=== PATIENT | male | born 1960 | race Caucasian/White ===

== ENCOUNTER → 2017-11-13 06:01 | Outpatient (CLI) | payer BC, SELFPAY ==
[2017-11-13 06:38] LABS: Hemoglobin A1C 5.3 % (0.0-7.0)
[2017-11-13 07:06] LABS: Alanine Aminotransferase 37 U/L (12-78); Albumin Level 3.9 gm/dL (3.4-5.0); Albumin/Globulin Ratio 1.2 (1.1-1.8); Alkaline Phosphatase 84 U/L (46-116); Anion Gap 10.7 mEq/L (5-15); Aspartate Amino Transferase 17 U/L (15-37); Bilirubin,Total 0.7 mg/dL (0.2-1.0); Blood Urea Nitrogen 7 mg/dL (7-18); Calcium 8.9 mg/dL (8.5-10.1); Carbon Dioxide 27 mmol/L (21.0-32.0); Chloride 106 mmol/L (98-107); Chol/HDL Ratio 4.6 (1-3.5); Cholesterol 196 mg/dL (140-200); Creatinine,Serum 0.93 mg/dL (0.70-1.30); Estimated Glomerular Filt Rate 84 ml/min (>60); GFR (African American) 101 ML/MIN (>60); Globulin 3.2 gm/dl (1.3-3.2); Glucose 101 mg/dL (74-106); HDL Cholesterol 43 mg/dL (27-67); LDL Cholesterol 137 mg/dL (0-130); Potassium 3.7 mmoL/L (3.5-5.1); Prostate Specific Ag Screen 2.3 ng/mL (0.0-4.0); Sodium 140 mmol/L (136-145); Thyroid Stimulating Hormone 1.89 uIU/ml (0.358-3.740); Total Protein,Serum 7.1 gm/dL (6.4-8.2); Triglycerides 82 mg/dL (30-200); VLDL Cholesterol 16 mg/dL (0-40)
[2017-11-15 05:18] LABS: Creatinine, Urine 277.7 mg/dL (Not Estab.); Microalbumin, Urine 122.2 ug/mL (Not Estab.)
== END ==
PROVIDERS: Nurse Practitioner; PCP Family Medicine; Visit Provider Family Medicine
DX: Z12.5 Encounter for screening for malignant neoplasm of prostate (principal); Z13.1 Encounter for screening for diabetes mellitus; I10 Essential (primary) hypertension; E78.2 Mixed hyperlipidemia
CPT/HCPCS: 36415; 80053; 80061; 82043; 82570; 83036; 84443; 85025; G0103

== ENCOUNTER → 2018-01-23 10:55 | Outpatient (CLI) | payer BC, SELFPAY ==
--- NOTE | 2018-01-23 11:07 | XR_ITS ---
XR lumbar spine min 4V Ordering Physician: Marta Davenport Patient Age: 57 years: Male HISTORY: ITS.REASON: LUMBAGO W/SCIATICA Low back pain. Extending down both legs. TECHNIQUE: Five-view lumbar spine series. COMPARISON :May 2014 lumbar spine series FINDINGS The vertebral bodies appear intact. L5/S1. Trace degenerative disc space narrowing. Bilateral facet arthropathy, hypertrophy right greater than left. L4/5. Mild 6 mm Grade 1 degenerative spondylosis L4 and L5.. Mild degenerative disc space narrowing. Posterior facet hypertrophy/arthropathy bilaterally, slightly more evident to the right... No pars defect identified. associated L2/3 with mild disc space narrowing posteriorly noted as well. Pedicles transverse processes SI joints intact. May 17, 2014 lumbar spine series. Subtle dextrocurvature at the thoracolumbar junction IMPRESSION: ------ . Facet arthropathy and Degenerative changes most evident L4/5 L5/S1. Only very slight if any progression since 2014 lumbar spine series L4/5.: mild degenerative grade 1 anterolisthesis L4 on L5. Facet arthropathy & hypertrophy.. Degenerative disc space narrowing most notable anterior. L5/S1: bilateral facet arthropathy most pronounced on the right right. Scant degenerative disc space narrowing. .
== END ==
PROVIDERS: PCP Nurse Practitioner; Visit Provider Nurse Practitioner
DX: M54.42 Lumbago with sciatica, left side (principal); M54.41 Lumbago with sciatica, right side
CPT/HCPCS: 72110

== ENCOUNTER → 2018-03-20 13:29 | Outpatient (CLI) | payer BC, SELFPAY ==
--- NOTE | 2018-03-20 13:47 | XR_ITS ---
XR chest 2 HISTORY: Cough and congestion ITS.REASON: BRONCHITIS ORDERING PHYSICIAN: Marta Davenport PATIENT AGE: 57 years COMPARISON: 08/01/2014 FINDINGS: The cardiomediastinal silhouette and pulmonary vascularity are within normal limits. The lungs are clear without infiltrates, suspicious nodules, or pleural acute bony abnormalities. IMPRESSION: Negative chest, no acute finding
== END ==
PROVIDERS: PCP Nurse Practitioner; Visit Provider Nurse Practitioner
DX: J40 Bronchitis, not specified as acute or chronic (principal)
CPT/HCPCS: 71046

== ENCOUNTER → 2018-04-21 19:57 | Outpatient (CLI) | payer BC, SELFPAY | PROVIDERS: PCP Family Medicine; Visit Provider Nurse Practitioner | DX: R05 Cough (principal) | CPT/HCPCS: 87070; 87116; 87205; 87206 ==

== ENCOUNTER → 2018-04-22 12:18 | Outpatient (CLI) | payer BC, SELFPAY | PROVIDERS: Visit Provider Nurse Practitioner | DX: R05 Cough (principal) | CPT/HCPCS: 87070; 87077; 87116; 87205; 87206 ==

== ENCOUNTER → 2018-06-26 11:28 | Outpatient (CLI) | payer BC, SELFPAY ==
[2018-06-26 12:26] LABS: Blood Urea Nitrogen 9 mg/dL (7-18); Creatinine,Serum 0.86 mg/dL (0.70-1.30); Estimated Glomerular Filt Rate 91 ml/min (>60); GFR (African American) 111 ML/MIN (>60)
--- NOTE | 2018-06-26 13:52 | CT_ITS ---
CT pelvis w con HISTORY: Right groin pain. Inguinal area pain right side. ITS.REASON: RIGHT GROIN PAIN ORDERING PHYSICIAN: Marta Davenport APRN PATIENT AGE: 57 years male COMPARISON: None Technique: Helical CT scanning performed through the pelvis with axial, coronal and sagittal reconstruction performed. Additional 3-D volume rendering reconstruction. All CT scans at the facility use one or more dose reduction, viz: automated exposure control, ma/kV adjustment per patient size (including targeted exams where dose is matched to indication, i.e. head), or iterative reconstruction technique. FINDINGS: . On close inspection at the right groin there is very tiny area of fat bulging through a slightly more generous right inguinal ring, reflecting a very small fat-containing right inguinal hernia.., (Axial image 60, 61, sagittal image 45.) No bowel loops here. No inflammation No Evidence of appendicitis. Appendix is small and difficult to visualize but no evidence of inflammation or appendicitis. There is generous stool at the cecum and moderate stool at the right colon. Only the pelvis is imaged. Terminal ileum appears satisfactory Oral contrast was given and outlines the distal small bowel and terminal ileum and is just now entering the cecum, right colon. Prostate mildly enlarged measuring 5.3 cm transverse diameter. The right seminal vesicles more generous than the left but otherwise unremarkable. Urinary bladder unremarkable. No pelvic adenopathy or mass There is diverticulosis of the colon most extensive at the sigmoid colon and continuing into the left colon. No diverticulitis. No inflammatory changes. --------- Lower lumbar observations L4/5 disc space narrowing with mild grade 1 listhesis of L4 on L5. Due to the prominent facet arthropathy/hypertrophy along with degenerative disc narrowing and changes. L5/S1 facet hypertrophy right greater than left. Mild disc bulge L3/4. Generous disc bulge to the right vaguely evident L2/3. Degenerative disc space narrowing mild posterior ridging with diffuse bulge. Spondylosis . Very Tiny fat-containing umbilical hernia noted Bony pelvis: Unremarkable. No acute fracture or dislocation. Hips: Unremarkable. No acute fracture or dislocation. Sacrum/coccyx: SI joints Unremarkable as visualized. No acute fracture. IMPRESSION: 1. Only very subtle bulging of fat through a slightly more generous right inguinal ring.-Suggest a very tiny developing right inguinal hernia. Unimpressive. Barely evident . No inflammation or bowel loops. No other inflammatory changes or findings at the right groin groin . No inguinal adenopathy. 2. No evidence of appendicitis. I believe the appendix is small and difficult to visualize but no inflammation here. Terminal ileum unremarkable 3. Moderate to generous stool cecum.-With Cecum residing just at the level of anterior iliac spine . No inflammation or findings here. 4. Colonic diverticulosis most extensive at the sigmoid colon and towards left colon. No diverticulitis. 5. Prostate mildly enlarged 6. Notable Multilevel degenerative changes lumbar spine as detailed in text Bulging disc, generous facet/posterior element hypertrophy multiple levels .
== END ==
PROVIDERS: PCP Nurse Practitioner; Visit Provider Nurse Practitioner
DX: R10.31 Right lower quadrant pain (principal); E78.2 Mixed hyperlipidemia; K21.9 Gastro-esophageal reflux disease without esophagitis; I10 Essential (primary) hypertension; Z12.5 Encounter for screening for malignant neoplasm of prostate; Z13.1 Encounter for screening for diabetes mellitus
CPT/HCPCS: 36415; 72193; 82565; 84520; Q9967

== ENCOUNTER → 2018-07-04 15:53 | Outpatient (CLI) | payer BC, SELFPAY ==
[2018-07-04 18:09] LABS: Blood Urea Nitrogen 9 mg/dL (7-18); Creatinine,Serum 0.89 mg/dL (0.70-1.30); Estimated Glomerular Filt Rate 88 ml/min (>60); GFR (African American) 106 ML/MIN (>60)
== END ==
PROVIDERS: Visit Provider Surgery
DX: K40.90 Unilateral inguinal hernia, without obstruction or gangrene, not specified as recurrent (principal)
CPT/HCPCS: 36415; 82565; 84520

== ENCOUNTER → 2018-07-10 12:45 | Outpatient (CLI) | payer BC, SELFPAY ==
--- NOTE | 2018-07-10 12:50 | MR_ITS ---
MR pelvis wo/w con CLINICAL INDICATION: Right-sided pelvic and groin pain, no known injury ITS.REASON: rt inguinal hernia ORDERING PHYSICIAN: Salazar Adams MD PATIENT AGE: 57 years Comparison: 07/03/2018 TECHNIQUE: Multiplanar multiecho sequences are performed without and with gadolinium enhancement FINDINGS: There is a mild degree of motion artifact which does somewhat obscure fine detail. A small right inguinal hernia was suspected on the CT scan of 06/26/2018 and is redemonstrated on today's exam. This is very small and does not contain any bowel. There is diverticulosis of the sigmoid colon. The prostate is prominent at 5.5 cm. There is slight increased T2 signal along the left side of the symphysis pubis along the anterior and inferior aspect. This may be seen with athletic pubalgia. There is a small right hip joint effusion. There is some decreased T1 and increased T2 signal in the acetabular roof on the right. Mild osteoarthritic changes are present involving the hips slightly greater on the right.. There is increased T2 signal along the deep aspect of the iliopsoas muscle. This does show some contrast enhancement as well. The right femoral head has an unremarkable appearance. There is focal bright increased T2 signal within these iliopsoas muscle at the level of the femoral head with 2 focal areas of increased T2 signal at this region. This is isointense on T1 with some minimal contrast enhancement. This may be due to an area of subacute hemorrhage. Hemorrhagic mass is felt to BE less likely however that etiology cannot be excluded and follow-up is recommended. IMPRESSION: 1. Mild osteoarthritis of the right hip with right hip effusion and some bone marrow edema in the acetabular roof on the right which could be related to the underlying osteoarthritic change. 2. Focal bright T2 hyperintensity within the psoas muscle to adjacent spinous with some peripheral increased T2 signal of the iliopsoas muscle in the iliac fossa with mild enhancement. A subacute hemorrhage is considered. Recommend follow-up to confirm resolution to exclude the possibility of a hemorrhagic mass..
== END ==
PROVIDERS: PCP Family Medicine; Visit Provider Surgery
DX: K40.90 Unilateral inguinal hernia, without obstruction or gangrene, not specified as recurrent
CPT/HCPCS: 72197; A9576

== ENCOUNTER → 2021-01-08 12:11 | Outpatient (CLI) | payer BC, SELFPAY ==
[2021-01-08 14:44] LABS: Basophils % 0.4 % (0.1-2.0); Eosinophils % 0.1 % (0.1-12.0); Hematocrit 50.1 % (42.0-52.0); Hemoglobin 16.8 g/dL (14.1-18.0); Lymphocytes # 2.1 K/mm3 (0.7-4.5); Lymphocytes % 27.2 % (10-50); Mean Corpuscular HGB Conc 33.5 g/dL (31.8-35.4); Mean Corpuscular Hemoglobin 29.7 pg (27.0-31.2); Mean Corpuscular Volume 88.6 fl (80-94); Mean Platelet Volume 7.9 fl (7.4-10.4); Monocytes # 0.6 K/mm3 (0.1-1.0); Monocytes % 8.2 % (1.7-9.3); Neutrophils # 4.9 K/mm3 (1.8-7.8); Platelet Count 235 K/mm3 (142-424); Red Blood Count 5.65 M/mm3 (4.60-6.20); Red Cell Distribution Width 13.9 % (11.5-17.5); White Blood Count 7.6 K/mm3 (4.8-10.8)
== END ==
PROVIDERS: PCP Nurse Practitioner; Visit Provider Nurse Practitioner
DX: Z20.822 Contact with and (suspected) exposure to COVID-19 (principal)
CPT/HCPCS: 36415; 85025; 87275; 87276; C9803; U0003; U0005

== ENCOUNTER → 2021-11-30 06:14 | Outpatient (CLI) | payer BC, SELFPAY ==
[2021-11-30 18:10] LABS: Adenovirus,PCR Not Detected (NotDetected); Bordetella Pertussis Not Detected (NotDetected); Chlamydophila Pneumoniae, PCR Not Detected (NotDetected); Coronavirus 19, PCR Not Detected (NotDetected); Coronavirus 229E Not Detected (NotDetected); Coronavirus NL63 Not Detected (NotDetected); Coronavirus OC43 Not Detected (NotDetected); Coronovirus HKU1,PCR Not Detected (NotDetected); Human Metapneumovirus Not Detected (NotDetected); Influenza A, PCR Not Detected (NotDetected); Influenza AH1, 2009 Not Detected (NotDetected); Influenza AH1, PCR Not Detected (NotDetected); Influenza AH3,PCR Not Detected (NotDetected); Influenza B, PCR Not Detected (NotDetected); Mycoplasma Pneumoniae, PCR Not Detected (NotDetected); Parainfluenza 1, PCR Not Detected (NotDetected); Parainfluenza 2, PCR Not Detected (NotDetected); Parainfluenza 3, PCR Not Detected (NotDetected); Parainfluenza 4, PCR Not Detected (NotDetected); Respiratory Syncytial Virus Not Detected (NotDetected); Rhinovirus/Enterovirus Not Detected (NotDetected)
[2021-11-30 18:31] LABS: Basophils # 0.1 K/mm3 (0-0.2); Basophils % 0.6 % (0.1-2.0); Hematocrit 51.7 % (42.0-52.0); Hemoglobin 16.7 g/dL (14.1-18.0); Lymphocytes # 2.3 K/mm3 (0.7-4.5); Lymphocytes % 21.3 % (10-50); Mean Corpuscular HGB Conc 32.2 g/dL (31.8-35.4); Mean Corpuscular Hemoglobin 29.5 pg (27.0-31.2); Mean Corpuscular Volume 91.5 fl (80-94); Mean Platelet Volume 9.7 fl (7.4-10.4); Monocytes # 0.9 K/mm3 (0.1-1.0); Monocytes % 8.1 % (1.7-9.3); Neutrophils # 7.4 K/mm3 (1.8-7.8); Neutrophils % 69.9 % (37.0-80.0); Platelet Count 271 K/mm3 (142-424); Red Blood Count 5.65 M/mm3 (4.60-6.20); Red Cell Distribution Width 13.6 % (11.5-17.5); White Blood Count 10.6 K/mm3 (4.8-10.8)
== END ==
PROVIDERS: PCP Nurse Practitioner; Visit Provider Nurse Practitioner
DX: Z20.822 Contact with and (suspected) exposure to COVID-19 (principal); J40 Bronchitis, not specified as acute or chronic; R05.9 Cough, unspecified; R06.2 Wheezing
CPT/HCPCS: 85025; 87581; 87632; 87798; C9803; U0003; U0005

== ENCOUNTER → 2022-03-01 09:46 | Outpatient (CLI) | payer BC, SELFPAY ==
[2022-03-01 15:51] LABS: Basophils % 0.7 % (0.1-2.0); Eosinophils % 0.1 % (0.1-12.0); Hematocrit 49.3 % (42.0-52.0); Hemoglobin 16.7 g/dL (14.1-18.0); Lymphocytes # 1.8 K/mm3 (0.7-4.5); Lymphocytes % 27.4 % (10-50); Mean Corpuscular HGB Conc 33.9 g/dL (31.8-35.4); Mean Corpuscular Hemoglobin 30.4 pg (27.0-31.2); Mean Corpuscular Volume 89.7 fl (80-94); Mean Platelet Volume 9.7 fl (7.4-10.4); Monocytes # 0.4 K/mm3 (0.1-1.0); Monocytes % 5.8 % (1.7-9.3); Neutrophils # 4.4 K/mm3 (1.8-7.8); Platelet Count 284 K/mm3 (142-424); Red Blood Count 5.49 M/mm3 (4.60-6.20); Red Cell Distribution Width 13.7 % (11.5-17.5); White Blood Count 6.7 K/mm3 (4.8-10.8)
[2022-03-02 07:47] LABS: Adenovirus,PCR Not Detected (NotDetected); Bordetella Pertussis Not Detected (NotDetected); Chlamydophila Pneumoniae, PCR Not Detected (NotDetected); Coronavirus 19, PCR Not Detected (NotDetected); Coronavirus 229E Not Detected (NotDetected); Coronavirus NL63 Not Detected (NotDetected); Coronavirus OC43 Not Detected (NotDetected); Coronovirus HKU1,PCR Not Detected (NotDetected); Human Metapneumovirus Not Detected (NotDetected); Influenza A, PCR Not Detected (NotDetected); Influenza AH1, 2009 Not Detected (NotDetected); Influenza AH1, PCR Not Detected (NotDetected); Influenza AH3,PCR Not Detected (NotDetected); Influenza B, PCR Not Detected (NotDetected); Mycoplasma Pneumoniae, PCR Not Detected (NotDetected); Parainfluenza 1, PCR Not Detected (NotDetected); Parainfluenza 2, PCR Not Detected (NotDetected); Parainfluenza 3, PCR Not Detected (NotDetected); Parainfluenza 4, PCR Not Detected (NotDetected); Respiratory Syncytial Virus Not Detected (NotDetected)
[2022-03-02 10:33] LABS: Rhinovirus/Enterovirus Detected (NotDetected)
== END ==
PROVIDERS: PCP Nurse Practitioner; Visit Provider Nurse Practitioner
DX: J06.9 Acute upper respiratory infection, unspecified (principal); B34.1 Enterovirus infection, unspecified
CPT/HCPCS: 85025; 87581; 87632; 87798; C9803; U0003; U0005

== ENCOUNTER → 2022-05-05 11:00 | Outpatient (CLI) | payer BC, SELFPAY | PROVIDERS: PCP Nurse Practitioner; Visit Provider Nurse Practitioner | DX: H66.91 Otitis media, unspecified, right ear (principal); J02.9 Acute pharyngitis, unspecified; J06.9 Acute upper respiratory infection, unspecified; R05.9 Cough, unspecified ==

== ENCOUNTER → 2022-09-21 10:58 | Outpatient (CLI) | payer BC, OTHER, SELFPAY ==
[2022-09-21 18:18] LABS: Basophils % 0.4 % (0.1-2.0); Eosinophils % 0.3 % (0.1-12.0); Hematocrit 52.5 % (42.0-52.0); Hemoglobin 17.1 g/dL (14.1-18.0); Lymphocytes % 37.2 % (10-50); Mean Corpuscular HGB Conc 32.6 g/dL (31.8-35.4); Mean Corpuscular Hemoglobin 28.5 pg (27.0-31.2); Mean Corpuscular Volume 87.3 fl (80-94); Mean Platelet Volume 9.6 fl (7.4-10.4); Monocytes # 0.5 K/mm3 (0.1-1.0); Monocytes % 9.5 % (1.7-9.3); Neutrophils # 2.8 K/mm3 (1.8-7.8); Neutrophils % 52.7 % (37.0-80.0); Platelet Count 239 K/mm3 (142-424); Red Blood Count 6.02 M/mm3 (4.60-6.20); Red Cell Distribution Width 13.8 % (11.5-17.5); White Blood Count 5.3 K/mm3 (4.8-10.8)
[2022-09-21 18:32] LABS: Alanine Aminotransferase 37 U/L (12-78); Albumin Level 4.4 g/dl (3.5-5.0); Albumin/Globulin Ratio 1.5 (1.1-1.8); Alkaline Phosphatase 83 U/L (38-126); Anion Gap 11.9 mEq/L (5-15); Aspartate Amino Transferase 35 U/L (17-59); Bilirubin,Total 1.2 mg/dl (0.2-1.3); Blood Urea Nitrogen 10 mg/dl (9-20); Calcium 9.2 mg/dl (8.4-10.2); Carbon Dioxide 27 mmol/L (22.0-30.0); Chloride 104 mmol/L (98-107); Chol/HDL Ratio 4.5 (1-3.5); Cholesterol 197 mg/dl (140-200); Estimated Glomerular Filt Rate 86 ml/min (>60); GFR (African American) 103 ML/MIN (>60); Glucose 105 mg/dl (74-100); HDL Cholesterol 44 mg/dl (40-60); Potassium 3.9 mmoL/L (3.5-5.1); Sodium 139 mmol/L (136-145); Total Protein,Serum 7.4 g/dl (6.3-8.2); Triglycerides 129 mg/dl (30-150); VLDL Cholesterol 26 mg/dL (0-40)
[2022-09-21 18:43] LABS: Direct LDL Cholesterol 121.96 mg/dL (100-129)
[2022-09-21 19:06] LABS: Thyroid Stimulating Hormone 0.97 uIU/mL (0.465-4.68)
[2022-09-21 19:25] LABS: Vitamin B12 274 pg/mL (239-931)
[2022-09-21 19:41] LABS: Creatinine,Urine Random 183 mg/dL (Not Estab.)
[2022-09-21 19:42] LABS: Microalbumin/Creatinine Ratio 21.4
== END ==
PROVIDERS: PCP Nurse Practitioner; Visit Provider Nurse Practitioner
DX: I10 Essential (primary) hypertension (principal); E78.5 Hyperlipidemia, unspecified; J45.909 Unspecified asthma, uncomplicated; K21.9 Gastro-esophageal reflux disease without esophagitis; Z13.1 Encounter for screening for diabetes mellitus; Z12.5 Encounter for screening for malignant neoplasm of prostate
CPT/HCPCS: 80053; 80061; 82043; 82570; 82607; 83036; 84443; 85025; G0103

== ENCOUNTER 2022-12-31 14:42 | Emergency (ER) | payer BC, OTHER, SELFPAY ==
[2022-12-31 15:00] VITALS: BP 141/95; PULSE 96; RESP 20; TEMP 37.1; O2SAT 98; BMI 36.3
[2022-12-31 15:38] VITALS: BP 141/95; PULSE 96; RESP 20; TEMP 37.1; O2SAT 98
--- NOTE | 2022-12-31 15:43 | EXP.UTC ---
Discharge Plan Disposition Patient Disposition: Still a Patient Condition: Good Prescriptions Prescriptions: New amoxicillin-pot clavulanate 875-125 mg Tablet 1 tab PO Q12H 10 Days Qty: 20 0RF methylprednisolone [Medrol (Fabiano)] 4 mg tablets,dose pack See Rx Instructions .Route .COMPLEX 6 Days Qty: 21 0RF Rx Instructions: taper pack; No Action Symbicort 80-4.5 mcg/actuation HFA aerosol inhaler 2 puff INHALATION BID ProAir HFA 90 mcg/actuation HFA aerosol inhaler 2 puff INHALATION QID Fasenra 30 mg/mL syringe 30 mg SQ Q8W levocetirizine 5 mg tablet 5 mg PO DAILY Qty: 90 3RF fluticasone propionate 50 mcg/actuation spray,suspension See Rx Instructions .ROUTE .COMPLEX Qty: 16 3RF Dose Instruction: Use 1 [place] in each nostril once daily. Rx Instructions: Use 1 [place] in each nostril once daily. lansoprazole 30 mg capsule,delayed release(DR/EC) See Rx Instructions .ROUTE .COMPLEX Qty: 90 1RF Dose Instruction: Take 1 Capsule by mouth once daily. Rx Instructions: Take 1 Capsule by mouth once daily. montelukast 10 mg tablet See Rx Instructions .ROUTE .COMPLEX Qty: 90 1RF Dose Instruction: Take 1 Tablet by mouth once every evening. Rx Instructions: Take 1 Tablet by mouth once every evening. losartan 50 mg tablet See Rx Instructions .ROUTE .COMPLEX Qty: 90 1RF Dose Instruction: Take 1 Tablet by mouth once daily. Rx Instructions: Take 1 Tablet by mouth once daily. simvastatin 20 mg tablet See Rx Instructions .ROUTE .COMPLEX Qty: 90 1RF Dose Instruction: Take 1 Tablet by mouth once daily at bedtime. Rx Instructions: Take 1 Tablet by mouth once daily at bedtime. Referrals Follow up/Referrals: Marta Davenport APRN [Primary Care Provider] - See instructions Activity Restrictions/Add. Instructions Additional Instructions/Restrictions: *Monitor Temp, Over the counter Motrin or Tylenol as directed/as needed Tylenol every 4 hours and Motrin every 6 hours (as long as your family doctor has told you that you can take it) for fever or pain. and straight to ER if unable to lower temp less than 101.0 after medication given *Warm salt water gargles may help to soothe the throat *Throat Lozenges? *Warm fluids like tea with honey may help to soothe the throat? *Sleep elevated *Humidifier/Vaporizer Follow up IMMEDIATELY for new or worsening symptoms or no Noticeable improvement over the next 48-72 hours. 911 for difficulty breathing or swallowing Clinical Impressions Clinical Impression: Sinusitis Qualifiers: Sinusitis location: unspecified location Chronicity: unspecified Qualified Code(s): J32.9 - Chronic sinusitis, unspecified Instructions Patient Instructions: DI for Sinusitis, Sinusitis, Middle Ear Infection Discharge ED Provider: Tiffanie Yeager [facility] General Stated complaint: COLD Mode of Arrival: Ambulatory Source of Information: Patient Limitations: No Limitations Time Seen by Provider: 12/31/22 15:46 Description of Symptoms (Recalled from Triage Doc. by RN): PATIENT C/O COUGH, RUNNY NOSE, SORE THOAT, SNEEZING, SINUS DRAINAGE, CONGESTION, AND BILATERAL EAR PAIN X 1 WEEK HEENT Symptoms (Recalled from RN notes): Yes Resp Symptoms (Recalled from RN notes): Yes Skin Symptoms (Recalled from RN notes): No MS Symptoms (Recalled from RN notes): No Functional Status (Recalled from RN notes): WNL History of Present Illness Provider Complaint: Patient states that she has been having cough, runny nose, sore throat, bilateral ear pain and pressure along with sinus pain and pressure behind his eyes States that he has been sick over a week and thought today when his sinus pressure was worse he came in to get checked Related Data Home Medications Medication Instructions Recorded Confirmed albuterol sulfate 90 mcg/actuation 2 puff inhalation QID 07/03/1809/21
== END 2022-12-31 15:58 | disposition still patient (30) ==
PROVIDERS: Emergency Provider Nurse Practitioner; PCP Nurse Practitioner
DX: J01.90 Acute sinusitis, unspecified (principal); H92.03 Otalgia, bilateral; J45.909 Unspecified asthma, uncomplicated; K21.9 Gastro-esophageal reflux disease without esophagitis; E78.5 Hyperlipidemia, unspecified; I10 Essential (primary) hypertension
CPT/HCPCS: 99204; 99212; G0463

== ENCOUNTER 2023-04-20 21:26 | Outpatient (CLI) | payer BC, OTHER, SELFPAY ==
[2023-04-20 19:24] LABS: Basophils % 0.3 % (0.1-2.0); Eosinophils % 0.1 % (0.1-12.0); Hematocrit 49.8 % (42.0-52.0); Hemoglobin 17.2 g/dL (14.1-18.0); Lymphocytes # 1.7 K/mm3 (0.7-4.5); Lymphocytes % 24.9 % (10-50); Mean Corpuscular HGB Conc 34.5 g/dL (31.8-35.4); Mean Corpuscular Hemoglobin 30.7 pg (27.0-31.2); Mean Corpuscular Volume 88.9 fl (80-94); Mean Platelet Volume 9.6 fl (7.4-10.4); Monocytes # 0.6 K/mm3 (0.1-1.0); Neutrophils # 4.4 K/mm3 (1.8-7.8); Neutrophils % 65.6 % (37.0-80.0); Platelet Count 224 K/mm3 (142-424); White Blood Count 6.8 K/mm3 (4.8-10.8)
[2023-04-20 19:55] LABS: Erythrocyte Sedimentation Rate 3 mm/hr (0-20)
[2023-04-20 20:05] LABS: Creatinine,Urine Random 131 mg/dL (Not Estab.)
[2023-04-20 20:07] LABS: Microalbumin/Creatinine Ratio 18.7
[2023-04-20 20:12] LABS: Alanine Aminotransferase 29 U/L (12-78); Albumin Level 3.9 g/dl (3.5-5.0); Albumin/Globulin Ratio 1.5 (1.1-1.8); Alkaline Phosphatase 76 U/L (38-126); Aspartate Amino Transferase 33 U/L (17-59); Blood Urea Nitrogen 7 mg/dl (9-20); Carbon Dioxide 26 mmol/L (22.0-30.0); Chloride 109 mmol/L (98-107); Chol/HDL Ratio 5.8 (1-3.5); Cholesterol 184 mg/dl (140-200); Estimated Glomerular Filt Rate 114 ml/min (>60); GFR (African American) 138 ML/MIN (>60); Globulin 2.6 g/dL (1.3-3.2); Glucose 100 mg/dl (74-100); HDL Cholesterol 32 mg/dl (40-60); Sodium 139 mmol/L (136-145); Total Protein,Serum 6.5 g/dl (6.3-8.2); Triglycerides 132 mg/dl (30-150); Uric Acid 6.4 mg/dl (3.5-8.5); VLDL Cholesterol 26 mg/dL (0-40)
[2023-04-20 20:22] LABS: C-Reactive Protein 0.9 mg/L (0-4); Direct LDL Cholesterol 119.72 mg/dL (100-129)
[2023-04-20 20:30] LABS: 25-OH Vitamin D, Total 20.7 ng/mL (30-100)
[2023-04-20 20:43] LABS: Thyroid Stimulating Hormone 0.91 uIU/mL (0.465-4.68)
[2023-04-20 21:01] LABS: Vitamin B12 234 pg/mL (239-931)
[2023-04-22 05:08] LABS: RA Latex Turbid. <10.0 IU/mL (<14.0)
[2023-04-22 12:48] LABS: Anti-Centromere B Antibodies <0.2 AI (0.0-0.9); Anti-DNA (DS) Ab Qn 3 IU/mL (0-9); Anti-Jo-1 <0.2 AI (0.0-0.9); Anti-Smith Antibody <0.2 AI (0.0-0.9); Antichromatin Antibodies 0.4 AI (0.0-0.9); Antiscleroderma-70 Antibodies <0.2 AI (0.0-0.9); RNP Antibodies 0.3 AI (0.0-0.9); Sjogren's Anti-SS-A 0.3 AI (0.0-0.9); Sjogren's Anti-SS-B <0.2 AI (0.0-0.9)
[2023-05-01 09:31] LABS: Antinuclear Antibodies, IFA Positive
== END 2023-04-20 23:59 ==
LOC: LAB.DROPOF 21:26
PROVIDERS: PCP Nurse Practitioner; Visit Provider Nurse Practitioner
DX: M25.541 Pain in joints of right hand (principal); M25.542 Pain in joints of left hand; J45.909 Unspecified asthma, uncomplicated; I10 Essential (primary) hypertension; E78.5 Hyperlipidemia, unspecified; K21.9 Gastro-esophageal reflux disease without esophagitis; E55.9 Vitamin D deficiency, unspecified; Z79.899 Other long term (current) drug therapy
CPT/HCPCS: 80053; 80061; 82043; 82306; 82570; 82607; 84443; 84550; 85025; 85651; 86038; 86140; 86225; 86235; 86431

== ENCOUNTER 2023-04-21 09:37 | Outpatient (CLI) | payer BC, OTHER, SELFPAY ==
--- NOTE | 2023-04-21 09:41 | XR_ITS ---
FINAL REPORT CLINICAL HISTORY: joint pain of bilateral hands COMPARISON: None FINDINGS: LEFT HAND 2 VIEWS: Mild degenerative change is present in the left hand. There is moderate degenerative change of the first carpometacarpal articulation. No acute bony abnormality is identified. No fracture or dislocation is seen. IMPRESSION: Mild degenerative change, with moderate degenerative change of the first CMC joint. Reviewed, Interpreted and Dictated by Salazar Carolina III, MD Transcribed by Valeria Melo Authenticated and [facility]
--- NOTE | 2023-04-21 09:41 | XR_ITS ---
FINAL REPORT CLINICAL HISTORY: joint pain of bilateral hands COMPARISON: None FINDINGS: RIGHT HAND 2 VIEWS: There is mild and moderate degenerative change present in the right hand. There is severe degenerative change in the triscaphe joint. There is moderate to severe degenerative change of the first CMC joint. No acute bony abnormality is identified. No fracture or dislocation is seen. IMPRESSION: Mild and moderate degenerative change of the right hand, with severe degenerative change of the triscaphe joint and moderate to severe degenerative change of the first CMC joint. Reviewed, Interpreted and Dictated by Salazar Carolina III, MD Transcribed by Valeria Melo Authenticated and [facility]
== END 2023-04-21 23:59 ==
LOC: RAD 09:38
PROVIDERS: PCP Nurse Practitioner; Visit Provider Nurse Practitioner
DX: M25.541 Pain in joints of right hand (principal); M25.542 Pain in joints of left hand
CPT/HCPCS: 73120

== ENCOUNTER 2023-05-05 22:11 | Outpatient (CLI) | payer BC, OTHER, SELFPAY ==
[2023-05-05 18:25] LABS: Basophils % 0.7 % (0.1-2.0); Eosinophils % 0.1 % (0.1-12.0); Hematocrit 50.8 % (42.0-52.0); Hemoglobin 16.6 g/dL (14.1-18.0); Lymphocytes # 1.6 K/mm3 (0.7-4.5); Lymphocytes % 27.2 % (10-50); Mean Corpuscular HGB Conc 32.6 g/dL (31.8-35.4); Mean Corpuscular Hemoglobin 30.4 pg (27.0-31.2); Mean Corpuscular Volume 93.3 fl (80-94); Mean Platelet Volume 8.6 fl (7.4-10.4); Monocytes # 0.6 K/mm3 (0.1-1.0); Neutrophils # 3.6 K/mm3 (1.8-7.8); Platelet Count 199 K/mm3 (142-424); Red Blood Count 5.44 M/mm3 (4.60-6.20); Red Cell Distribution Width 14.1 % (11.5-17.5); White Blood Count 5.9 K/mm3 (4.8-10.8)
[2023-05-05 18:40] LABS: Alanine Aminotransferase 49 U/L (12-78); Albumin Level 3.7 g/dl (3.5-5.0); Albumin/Globulin Ratio 1.4 (1.1-1.8); Alkaline Phosphatase 66 U/L (38-126); Anion Gap 11.6 mEq/L (5-15); Aspartate Amino Transferase 44 U/L (17-59); Bilirubin,Total 0.7 mg/dl (0.2-1.3); Blood Urea Nitrogen 10 mg/dl (9-20); Calcium 8.6 mg/dl (8.4-10.2); Carbon Dioxide 25 mmol/L (22.0-30.0); Chloride 107 mmol/L (98-107); Estimated Glomerular Filt Rate 98 ml/min (>60); GFR (African American) 118 ML/MIN (>60); Globulin 2.6 g/dL (1.3-3.2); Glucose 124 mg/dl (74-100); Potassium 3.6 mmoL/L (3.5-5.1); Sodium 140 mmol/L (136-145); Total Protein,Serum 6.3 g/dl (6.3-8.2); Uric Acid 6.3 mg/dl (3.5-8.5)
[2023-05-05 18:51] LABS: Erythrocyte Sedimentation Rate 5 mm/hr (0-20)
== END 2023-05-05 23:59 ==
LOC: LAB.DROPOF 22:11
PROVIDERS: PCP Nurse Practitioner; Visit Provider Nurse Practitioner
DX: M25.541 Pain in joints of right hand (principal); M25.542 Pain in joints of left hand; R76.8 Other specified abnormal immunological findings in serum
CPT/HCPCS: 80053; 84550; 85025; 85651

== ENCOUNTER 2023-05-23 19:29 | Outpatient (CLI) | payer BC, OTHER, SELFPAY ==
[2023-05-23 18:13] LABS: Adenovirus,PCR Not Detected (NotDetected); Coronavirus 19, PCR Not Detected (NotDetected); Coronavirus 229E Not Detected (NotDetected); Coronavirus NL63 Not Detected (NotDetected); Coronavirus OC43 Not Detected (NotDetected); Coronovirus HKU1,PCR Not Detected (NotDetected); Human Metapneumovirus Not Detected (NotDetected); Influenza A, PCR Not Detected (NotDetected); Influenza AH1, 2009 Not Detected (NotDetected); Influenza AH1, PCR Not Detected (NotDetected); Influenza AH3,PCR Not Detected (NotDetected); Influenza B, PCR Not Detected (NotDetected); Parainfluenza 1, PCR Not Detected (NotDetected); Parainfluenza 2, PCR Not Detected (NotDetected); Parainfluenza 3, PCR Not Detected (NotDetected); Parainfluenza 4, PCR Not Detected (NotDetected); Respiratory Syncytial Virus Not Detected (NotDetected)
[2023-05-23 19:58] LABS: Albumin/Globulin Ratio 1.3 (1.1-1.8); Alkaline Phosphatase 61 U/L (38-126); Anion Gap 7.9 mEq/L (5-15); Bilirubin,Total 0.8 mg/dl (0.2-1.3); Blood Urea Nitrogen 13 mg/dl (9-20); Calcium 8.4 mg/dl (8.4-10.2); Carbon Dioxide 26 mmol/L (22.0-30.0); Chloride 105 mmol/L (98-107); Estimated Glomerular Filt Rate 98 ml/min (>60); GFR (African American) 118 ML/MIN (>60); Globulin 2.4 g/dL (1.3-3.2); Glucose 102 mg/dl (74-100); Potassium 3.9 mmoL/L (3.5-5.1); Sodium 135 mmol/L (136-145); Total Protein,Serum 5.4 g/dl (6.3-8.2); Uric Acid 5.8 mg/dl (3.5-8.5)
[2023-05-23 19:59] LABS: Alanine Aminotransferase 45 U/L (12-78); Aspartate Amino Transferase 30 U/L (17-59)
[2023-05-23 21:56] LABS: Rhinovirus/Enterovirus Detected (NotDetected)
== END 2023-05-23 23:59 ==
LOC: LAB.DROPOF 19:29
PROVIDERS: PCP Nurse Practitioner; Visit Provider Nurse Practitioner
DX: M25.541 Pain in joints of right hand (principal); M25.542 Pain in joints of left hand; J06.9 Acute upper respiratory infection, unspecified; B34.1 Enterovirus infection, unspecified; R60.0 Localized edema
CPT/HCPCS: 80053; 84550; 87632; 87635

== ENCOUNTER 2023-06-08 18:16 | Outpatient (CLI) | payer BC, OTHER, SELFPAY ==
[2023-06-08 18:17] LABS: Alanine Aminotransferase 51 U/L (12-78); Albumin Level 3.6 g/dl (3.5-5.0); Albumin/Globulin Ratio 1.2 (1.1-1.8); Alkaline Phosphatase 85 U/L (38-126); Anion Gap 10.3 mEq/L (5-15); Aspartate Amino Transferase 43 U/L (17-59); Bilirubin,Total 0.8 mg/dl (0.2-1.3); Blood Urea Nitrogen 8 mg/dl (9-20); Carbon Dioxide 25 mmol/L (22.0-30.0); Chloride 108 mmol/L (98-107); Estimated Glomerular Filt Rate 98 ml/min (>60); GFR (African American) 118 ML/MIN (>60); Globulin 2.9 g/dL (1.3-3.2); Glucose 110 mg/dl (74-100); Potassium 4.3 mmoL/L (3.5-5.1); Sodium 139 mmol/L (136-145); Total Protein,Serum 6.5 g/dl (6.3-8.2)
[2023-06-08 18:47] LABS: Prostate Specific Ag, Diagnost 3.36 ng/ml (0.0-4.0)
== END 2023-06-08 23:59 ==
LOC: LAB.DROPOF 18:16
PROVIDERS: PCP Nurse Practitioner; Visit Provider Nurse Practitioner
DX: R60.0 Localized edema (principal); R97.20 Elevated prostate specific antigen [PSA]
CPT/HCPCS: 80053; 84153

== ENCOUNTER 2023-08-25 10:09 | Outpatient (CLI) | payer BC, OTHER, SELFPAY ==
[2023-08-25 18:37] LABS: Adenovirus,PCR Not Detected (NotDetected); Bordetella Pertussis Not Detected (NotDetected); Chlamydophila Pneumoniae, PCR Not Detected (NotDetected); Coronavirus 229E Not Detected (NotDetected); Coronavirus NL63 Not Detected (NotDetected); Coronavirus OC43 Not Detected (NotDetected); Coronovirus HKU1,PCR Not Detected (NotDetected); Human Metapneumovirus Not Detected (NotDetected); Influenza A, PCR Not Detected (NotDetected); Influenza AH1, 2009 Not Detected (NotDetected); Influenza AH1, PCR Not Detected (NotDetected); Influenza AH3,PCR Not Detected (NotDetected); Influenza B, PCR Not Detected (NotDetected); Mycoplasma Pneumoniae, PCR Not Detected (NotDetected); Parainfluenza 1, PCR Not Detected (NotDetected); Parainfluenza 2, PCR Not Detected (NotDetected); Parainfluenza 3, PCR Not Detected (NotDetected); Parainfluenza 4, PCR Not Detected (NotDetected); Respiratory Syncytial Virus Not Detected (NotDetected); Rhinovirus/Enterovirus Not Detected (NotDetected)
[2023-08-25 19:17] LABS: Basophils % 0.3 % (0.1-2.0); Hematocrit 49.5 % (42.0-52.0); Hemoglobin 15.7 g/dL (14.1-18.0); Lymphocytes # 1.2 K/mm3 (0.7-4.5); Mean Corpuscular HGB Conc 31.8 g/dL (31.8-35.4); Mean Corpuscular Hemoglobin 29.3 pg (27.0-31.2); Mean Corpuscular Volume 92.1 fl (80-94); Mean Platelet Volume 9.2 fl (7.4-10.4); Monocytes # 0.8 K/mm3 (0.1-1.0); Monocytes % 10.6 % (1.7-9.3); Neutrophils # 5.2 K/mm3 (1.8-7.8); Platelet Count 239 K/mm3 (142-424); Red Blood Count 5.37 M/mm3 (4.60-6.20); Red Cell Distribution Width 14.9 % (11.5-17.5); White Blood Count 7.2 K/mm3 (4.8-10.8)
[2023-08-25 20:06] LABS: Alanine Aminotransferase 32 U/L (12-78); Albumin Level 3.7 g/dl (3.5-5.0); Albumin/Globulin Ratio 1.2 (1.1-1.8); Alkaline Phosphatase 76 U/L (38-126); Anion Gap 14.6 mEq/L (5-15); Aspartate Amino Transferase 37 U/L (17-59); Bilirubin,Total 0.9 mg/dl (0.2-1.3); Blood Urea Nitrogen 13 mg/dl (9-20); Calcium 8.9 mg/dl (8.4-10.2); Carbon Dioxide 24 mmol/L (22.0-30.0); Chloride 101 mmol/L (98-107); Estimated Glomerular Filt Rate 85 ml/min (>60); GFR (African American) 103 ML/MIN (>60); Glucose 105 mg/dl (74-100); Potassium 3.6 mmoL/L (3.5-5.1); Sodium 136 mmol/L (136-145); Total Protein,Serum 6.7 g/dl (6.3-8.2)
[2023-08-25 21:02] LABS: Coronavirus 19, PCR Detected (NotDetected)
== END 2023-08-25 23:59 | disposition home or self-care (01) ==
LOC: LAB.DROPOF 08-26 10:09
PROVIDERS: PCP Nurse Practitioner; Visit Provider Nurse Practitioner
DX: R69 Illness, unspecified (principal); J06.9 Acute upper respiratory infection, unspecified
CPT/HCPCS: 36415; 80053; 85025; 87581; 87632; 87635; 87798

== ENCOUNTER 2024-05-16 09:49 | Outpatient (CLI) | payer BC, OTHER, SELFPAY ==
[2024-05-16 18:59] LABS: Microalbumin/Creatinine Ratio 108.2
[2024-05-16 19:00] LABS: Creatinine,Urine Random 63 mg/dL (Not Estab.)
[2024-05-16 19:10] LABS: Basophils % 0.3 % (0.1-2.0); Eosinophils % 0.4 % (0.1-12.0); Hematocrit 46.3 % (42.0-52.0); Hemoglobin 15.2 g/dL (14.1-18.0); Lymphocytes # 1.1 K/mm3 (0.7-4.5); Lymphocytes % 14.5 % (10-50); Mean Corpuscular HGB Conc 32.8 g/dL (31.8-35.4); Mean Corpuscular Hemoglobin 28.7 pg (27.0-31.2); Mean Corpuscular Volume 87.4 fl (80-94); Mean Platelet Volume 10.1 fl (7.4-10.4); Monocytes # 0.7 K/mm3 (0.1-1.0); Monocytes % 9.8 % (1.7-9.3); Neutrophils # 5.7 K/mm3 (1.8-7.8); Neutrophils % 74.9 % (37.0-80.0); Platelet Count 202 K/mm3 (142-424); Red Cell Distribution Width 14.3 % (11.5-17.5); White Blood Count 7.6 K/mm3 (4.8-10.8)
[2024-05-16 20:19] LABS: Alanine Aminotransferase 29 U/L (12-78); Albumin Level 4.6 g/dl (3.5-5.0); Albumin/Globulin Ratio 1.5 (1.1-1.8); Alkaline Phosphatase 71 U/L (38-126); Anion Gap 9.7 mEq/L (5-15); Aspartate Amino Transferase 33 U/L (17-59); Blood Urea Nitrogen 15 mg/dl (9-20); Calcium 9.4 mg/dl (8.4-10.2); Carbon Dioxide 29 mmol/L (22.0-30.0); Chloride 100 mmol/L (98-107); Chol/HDL Ratio 5.8 (1-3.5); Cholesterol 248 mg/dl (140-200); Estimated Glomerular Filt Rate 67 ml/min (>60); GFR (African American) 82 ML/MIN (>60); Glucose 103 mg/dl (74-100); HDL Cholesterol 43 mg/dl (40-60); Potassium 3.7 mmoL/L (3.5-5.1); Sodium 135 mmol/L (136-145); Total Protein,Serum 7.6 g/dl (6.3-8.2); Triglycerides 113 mg/dl (30-150); VLDL Cholesterol 23 mg/dL (0-40)
[2024-05-16 20:29] LABS: Direct LDL Cholesterol 148.92 mg/dL (100-129)
[2024-05-16 20:32] LABS: Hemoglobin A1C 4.8 % (4.0-6.0)
[2024-05-16 20:45] LABS: 25-OH Vitamin D, Total 79.4 ng/mL (30-100)
[2024-05-16 20:53] LABS: Prostate Specific Ag Screen 4.5 ng/ml (0.0-4.0)
[2024-05-16 21:22] LABS: Vitamin B12 > 1000 pg/mL (239-931)
== END 2024-05-16 23:59 | disposition home or self-care (01) ==
LOC: LAB.DROPOF 05-17 12:04
PROVIDERS: PCP Nurse Practitioner; Visit Provider Nurse Practitioner
DX: I10 Essential (primary) hypertension (principal); E78.5 Hyperlipidemia, unspecified; J45.909 Unspecified asthma, uncomplicated; K21.9 Gastro-esophageal reflux disease without esophagitis; E53.8 Deficiency of other specified B group vitamins; R97.20 Elevated prostate specific antigen [PSA]; Z68.30 Body mass index [BMI] 30.0-30.9, adult
CPT/HCPCS: 80053; 80061; 82043; 82306; 82570; 82607; 83036; 84443; 85025; G0103

== ENCOUNTER 2025-01-15 15:01 | Outpatient (CLI) | payer MEDICARE, BC, OTHER, SELFPAY ==
--- OUTSIDE RECORDS SUMMARY | 2024-11-19 09:00 | XMS_ITS | Encounter Summary ---
Author Organization [place] [address] Care Team Providers Care Orbitread Operator Name Role Phone Stanton Katlyn Toledo Primary Care Provider [phone] Bree Gonsalez MD Unavailable Amada Yo Clerical Staff Unavailable Reason for Visit * Reason Comments Follow-up Encounter Details Date Type Department Care Team (Late st Contact Info) Description 11/19/2024 10:00 AM EDT Office Visit [facility] [address] [place] [address] [phone] Jose Rangel MD [address] [place] [address] ASHD (arteriosclerotic heart disease) (Primary Dx); Palpitations Social History Tobacco Use Types Packs/Day Years Used Date Smoking Tobacco: Never Passive Smoke Exposure: Never Smokeless Tobacco: Never Tobacco Cessation:Counseling Given: Not Answered Alcohol Use Standard Drinks/Week Comments Never 0 (1 standard drink = 0.6 oz pur e alcohol) Sexually Active Control Partners Comments Not Currently Other-see comments Female had a historectomy Sex and Gender Information Value Date Recorded Sex Assigned at Not on file Legal Sex Male 2:37 AM EDT Gender Identity Not on file Sexual Orientation Not on file Occupation Industry Job Start Date Job End Date 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, 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[employer] Not on file Not on maikel e Not on file documented as of this encounter Last Filed Vital Signs Vital Sign Reading Time Taken Comments Blood Pressure 126/78 11/19/2024 9:39 AM EDT Pulse 97 11/19/2024 9:39 AM EDT Temperature - - Respiratory Rate - - Oxygen Saturation 96% 11/19/2024 9:39 AM EDT Inhaled Oxygen Concentration - - Weight 108.4 kg (239 lb) 11/19/2024 9:39 AM EDT Height - - Body Mass Index 32.41 10/30/2024 1:33 PM EDT documented in this encounter Ordered Prescriptions Prescription Sig Dispense Quantity Refills Last Filled Start Date End Date losartan-hydrochlor othiazide (HYZAAR) 50-12.5 mg Oral Tablet Take 1 Tablet by mouth daily. 90 Tablet 1 11/19/2024 documented in this encounter Progress Notes * Jose Rangel MD - 11/19/2024 10:00 AM EDT Chief Complaint Patient presents with ??? Follow-up SUBJECTIVE: Faustino Hand is a 63 y.o. male who is here for cardiology follow up. Patient with history of scleroderma/ eosinophilic asthma RV dilation although preserved LV functionfollow up after RHC and LHC presents today for follow up No CHF symptoms No chest pain or angina No palpitations, dizziness or syncope No active cardiac complaints Functional status and exercise capacity is improving on Actemra Skin also feeling better REVIEW OF SYSTEMS: Constitutional: Denies weight loss, weight gain Eyes: Denies vision changes Ears, Nose, Throat: Denies sinus drainage, hearing changes, sore throat Cardiovascular: see HPI Respiratory: Denies cough, wheezing, sputum, hemoptysis Gastrointestinal: Denies melena, hematochezia, appetite changes Musculoskeletal: Denies muscle pain, muscle weakness, joint swelling, joint pain Skin: Denies rashes Neurologic: Denies numbness, slurred speech Psychiatric: Denies depression, anxiety Hematologic/Lymphatic: Denies excessive bleeding or bruising, abnormal masses Endocrine: Denies polyuria, polyphagia, hot intolerance, cold intolerance Allergic/Immunologic: Denies fevers, chills, sweating OUTPATIENT MEDICATIONS: Current Outpatient Medications Medication Sig Dispense Refill ??? albuterol (PROVENTIL HFA;VENTOLIN HFA) 90 mcg/actuation Inhl HFA Aerosol Inhaler Inhale 2 Puffsinto the lungs every 6 hours as needed for Wheezing. 1 Each 3 ??? allopurinoL (ZYLOPRIM) 100 mg Oral Tablet Take 1 Tablet by mouth daily. 90 Tablet 0 ??? amLODIPine (NORVASC) 10 mg Oral Tablet Take 10 mg by mouth daily. ??? benralizumab (FASENRA) 30 mg/mL SubQ Subcutaneous (Inject under the skin) 1 mL Every 8 weeks. every 8 weeks 1 mL 6 ??? budesonide-formoteroL (SYMBICORT) 160-4.5 mcg/actuation Inhl HFA Aerosol Inhaler INHALE 2 PUFFSBY MOUTH 2 TIMES A DAY 30.6 g 1 ??? Cholecalciferol, Vitamin D3, 125 mcg (5,000 unit) Oral Tablet Take 125 mcg by mouth daily. ??? cyanocobalamin 1,000 mcg Oral Tablet Take 1,000 mcg by mouth daily. ??? diclofenac (VOLTAREN) 75 mg Oral Tablet, Delayed Release (E.C.) Take 1 Tablet by mouth 2 times daily. 60 Tablet 2 ??? fluticasone (FLONASE) 50 mcg/actuation Nasl [place], Suspension 1 [place] by Nasal route every morning. ??? folic acid (FOLVITE) 1 mg Oral Tablet Take 1 Tablet by mouth daily. 90 Tablet 0 ??? levocetirizine (XYZAL) 5 mg Oral Tablet Take 5 mg by mouth daily. ??? montelukast (SINGULAIR) 10 mg Oral Tablet Take 1 Tablet by mouth every evening. 30 Tablet 4 ??? mycophenolate (CELLCEPT) 500 mg Oral Tablet Take 2 Tablets by mouth 2 times daily. 120 Tablet 1 ??? tocilizumab (ACTEMRA IV) Inject into the vein every 28 days. ??? losartan-hydrochlorothiazide (HYZAAR) 50-12.5 mg Oral Tablet Take 1 Tablet by mouth daily. 90 Tablet 1 No current facility-administered medications for this visit. PAST MEDICAL/SURGICAL/SOCIAL/FAMILY HISTORY: Has been reviewed. PHYSICAL EXAMINATION: Vitals: 11/19/24 0939 BP: 126/78 Pulse: 97 SpO2: 96% Body mass index is 32.41 kg/m??. CONSTITUTIONAL: No apparent distress. Alert and oriented. EYES:Gaze is conjugate. Ptosis is absent. NECK: Thyromegaly is absent. Masses are absent. RESPIRATORY: dry basilar crackles CARDIOVASCULAR: RRR.No Murmurs, rubs or gallops S1 and S2 normal. S3 or S4 are absent. Pulses are normal. JVD is normal. Edema is absent. No Carotid Bruits GASTROINTESTINAL: Non tender, not distended. MUSCULOSKELETAL: No clubbing or Cyanosis SKIN: Rashes are visually absent. Warm and dry. NEUROLOGICAL: Grossly non focal. PSYCHIATRIC: Mood is normal. Affect is normal. LABORATORY AND STUDIES: Any pertinent laboratory/study information has been reviewed, including information on the latest cardiac catheterization, echocardiogram, ECG, stress test or holter monitor. No results found for: CHOLESTEROL , HDL , LDLCALC , TRIG Lab Results Component Value Date INR 0.96 07/29/2023 Lab Results Component Value Date WBC 7.6 11/07/2024 HGB 14.8 11/07/2024 HCT 45.5 11/07/2024 MCV 90.1 11/07/2024 PLT 243 11/18/2023 Lab Results Component Value Date HGBA1C 4.7 08/13/2024 Lab Results Component Value Date NA 135 (L) 11/18/2023 K 3.8 11/18/2023 BUN 8 11/18/2023 CALCIUM 9.1 11/18/2023 CL 98 11/18/2023 CO2 25 11/18/2023 CREATININE 1.06 11/07/2024 GLU 88 11/18/2023 Lab Results Component Value Date ALT 25 11/07/2024 AST 24 11/07/2024 ALKPHOS 60 11/07/2024 BILITOT 0.7 11/07/2024 No results found for: TSH ECG: No results found for this visit on 11/19/24. No results found for this or any previous visit. 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 * Left ventricular function is low normal with an estimated ejection fraction of 50-55%. * Left ventricular segmental wall motion is normal. * The left ventricular diastolic function is normal. * Right ventricular systolic function is normal. * Estimated pulmonary artery systolic pressure is 34 mmHg. * The aortic root is mildly dilated. 4.1cm. * The proximal ascending aorta is normal. 4.2cm. Stress Test No results found for this or any previous visit. No results found for this or any previous visit. No results found for this or any previous visit. No results found for this or any previous visit. Heart Cath: No results found. ASSESSMENT AND PLAN: This is a 63 y.o. male with the following issues: 1. Scleroderma on MTX. Follows with Rheumatology and pulmonology on Cellcept and Actemra 2. Mild RV dilation but normal RV pressure. No PH 3. Bilateral edema on Lasix- improved 4. Mild CAD - Cath July 2023 5. Essential hypertension controlled on lowered dose of Hyzaar 6. ILD (NSIP) Plan Doing well from cardiac standpoint No chest pain or angina No CHF concerns Cont current medications Cont Cellcept and Actemra Follow up in 9 months or sooner if needed Jose Rangel MD RPVI, FACC, FSCAI. 11/19/2024 10:14 AM This chart was completed using voice recognition technology and may contain unintended errors documented in this encounter Plan of Treatment Upcoming Encounters Date Type Department Care Team (Late st Contact Info) Description 01/30/2025 10:30 AM EST [facility] [address] [facility] [place] [address] 02/27/2025 10:30 AM EST Office Visit [facility] [address] [facility] [place] [address] 03/27/2025 10:15 AM EST Office Visit [facility] [address] [place] [address] 04/02/2025 10:15 AM EST Office Visit [facility] [address] [place] [address] Daphne Mendoza MD [address] [address] 04/09/2025 10:00 AM EST Office Visit [facility] [address] [place] [address] Bree Gonsalez MD [address] [place] [address] 07/01/2025 9:15 AM EDT [place] [address] Jose Rangel MD [address] [place] [id number] documented as of this encounter Visit Diagnoses Diagnosis ASHD (arteriosclerotic heart disease)- Primary Coronary atherosclerosis of unspecified type of vessel, washoe or graft Palpitations documented in this encounter Discontinued Medications Medication Sig Discontinue Reason Start Date End Da te methocarbamoL (ROBAXIN) 750 mg Oral TabletIndications:Acute pain of right hip,Right knee pain, unspecified chronicity,Primary osteoarthritis of right knee,Hx of total hip arthroplasty, right Take 1 Tablet by mouth 2 times daily as needed. Patient Reported not taking medication 10/14/2023 11/19/2024 losartan-hydrochlorothiaz rachel (HYZAAR) 100-25 mg Oral Tablet Take 1 Tablet by mouth daily. Cancelled by 04/18/2024 11/19/2024 documented as of this encounter Care Teams Orbitread Operator Relationship Specialty Start Date End Date Katlyn Eid [address] [facility] [address] [place] [id number] PCP - General Family Medicine 10/22/15 Bree Gonsalez MD [address] [facility] [place] [address] Internal Medicine-Rheumatology 06/20/23 Amada Yo, Clerical Staff Financial Counselor 03/14/24 documented as of this encounter
--- OUTSIDE RECORDS SUMMARY | 2024-12-05 09:15 | XMS_ITS | Encounter Summary ---
Author Organization [facility] Address [address] [place] [phone] Care Team Providers Care Landscape Architect Name Role Phone Katlyn Eid Primary Care Provider Bree Gonsalez MD Unavailable Amada Yo Clerical Staff Unavailable Reason for Visit * Oncology Medication Prior Authorization (Routine) - Authorized Specialty Diagnoses / Procedures Referred By Contac t Referred To Contact Diagnoses Seronegative rheumatoid arthritis (HCC) Scleroderma (HCC) Interstitial lung disease (HCC) Drug therapy Procedures [place] [address] [place] [address] Phone: tel: fax: [facility] [address] [address] Referral ID Status Reason Start Date Expiration Date V isits Requested Visits Authorized [id number] Authorized 03/29/2024 99 99 Encounter Details Date Type Department Care Team (Latest Contact Info) Description 12/05/2024 10:15 AM EDT Office Visit [facility] [address] [address] Lung disease, interstitial (HCC) (Primary Dx); Seronegative rheumatoid arthritis (HCC); Encounter for long-term (current) use of high-risk medication; Scleroderma (HCC) Social History Tobacco Use Types Packs/Day Years Used Date Smoking Tobacco: Never Passive Smoke Exposure: Never Smokeless Tobacco: Never Alcohol Use Standard Drinks/Week Comments Never 0 [...] Industry Job Start Date Job End Date 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, 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[employer] Not on file Not on maikel e Not on file documented as of this encounter Last Filed Vital Signs Vital Sign Reading Time Taken Comments Blood Pressure 110/68 12/05/2024 10:47 AM EDT Pulse 85 12/05/2024 10:47 AM EDT Temperature 36.3 C (97.4 F) 12/05/2024 10:07 AM EDT Respiratory Rate 16 12/05/2024 10:47 AM EDT Oxygen Saturation 97% 12/05/2024 10:47 AM EDT Inhaled Oxygen Concentration - - Weight 108.4 kg (239 lb) 12/05/2024 10:07 AM EDT Height - - Body Mass Index 32.41 10/30/2024 1:33 PM EDT documented in this encounter Progress Notes * Anna Parsons RN - 12/05/2024 10:15 AM EDT Pt received Actemra 400mg. Pt stable at discharge. documented in this encounter Plan of Treatment Upcoming Encounters Date Type Department Care Team (Late st Contact Info) Description 01/30/2025 10:30 AM EST Office Visit [facility] [address] [place] [address] 02/27/2025 10:30 AM EST Office Visit [facility] [address] [place] [address] 03/27/2025 10:15 AM EST Office Visit [facility] [address] [place] [address] 04/02/2025 10:15 AM EST Office Visit [facility] [address] [place] [address] Daphne Mendoza MD [address] [place] [address] 04/09/2025 10:00 AM EST Office Visit [facility] [address] [place] [address] Bree Gonsalez MD [address] [place] [address] 07/01/2025 9:15 AM EDT [place] [address] Jose Rangel MD [address] [place] [address] documented as of this encounter Visit Diagnoses Diagnosis Lung disease, interstitial (HCC)- Primary Postinflammatory pulmonary fibrosis Seronegative rheumatoid arthritis (HCC) Rheumatoid arthritis Encounter for long-term (current) use of high-risk medication Encounter for long-term (current) use of other medications Scleroderma (HCC) Systemic sclerosis documented in this encounter Administered Medications Inactive Administered Medications - up to 1 most recent administrations Medication Order MAR Action Action Date Dose Rate Site tocilizumab (ACTEMRA) 430 mg in sodium chloride 0.9 % 100 mL infusion 430 mg (rounded from 433.6 mg = 4 mg/kg 108.4 kg), Intravenous, ONCE, 1 dose, On Tue12/05/24 at 1030, at 100 mL/hr, Allow fully diluted solution to reach room temperature prior to infusion., Dx: 1. Lung disease, interstitial (HCC) 2. Seronegative rheumatoid arthritis (HCC) 3. Encounter for long-term (current) use of high-risk medication 4. Scleroderma (HCC)Indications:Lung disease, interstitial (HCC),Seronegative rheumatoid arthritis (HCC),Encounter for long-term (current) use of high-risk medication,Scleroderma (HCC) IV Started 12/05/2024 10:18 AM EDT 400 mg 100 mL/hr documented in this encounter Orders Medications Ordered That Magdaleno ht Not Have Been Administered Count Last Ordered Date First Ordered Date tocilizumab (ACTEMRA) 430 mg in sodium chloride 0.9 % 100 mL infusion 1 12/05/2024 documented in this encounter Care Teams Landscape Architect Relationship Specialty Start Date End Date Katlyn Eid [facility] [address] [place] [address] PCP - General Family Medicine 10/22/15 Bree Gonsalez MD [facility] [place] [address] Internal Medicine-Rheumatology 06/20/23 Amada Yo, Clerical Staff Financial Counselor 03/14/24 documented as of this encounter
--- OUTSIDE RECORDS SUMMARY | 2025-01-02 09:15 | XMS_ITS | Encounter Summary ---
Author Organization [facility] Address [address] [place] [phone] Care Team Providers Care Manager Intelligence Name Role Phone Katlyn Eid Primary Care Provider [phone] Bree Gonsalez MD Unavailable Amada Yo Clerical Staff Unavailable Reason for Visit * Oncology Medication Prior Authorization (Routine) - Authorized Specialty Diagnoses / Procedures Referred By Contac t Referred To Contact Diagnoses Seronegative rheumatoid arthritis (HCC) Scleroderma (HCC) Interstitial lung disease (HCC) Drug therapy Procedures [place] [address] [place] [phone] Phone: tel: fax: [facility] [address] [address] Referral ID Status Reason Start Date Expiration Date V isits Requested Visits Authorized [id number] Authorized 03/29/2024 99 99 Encounter Details Date Type Department Care Team (Latest Contact Info) Description 01/02/2025 10:15 AM EDT Office Visit [facility] [address] [address] Lung disease, interstitial (HCC) (Primary Dx); Seronegative [...] Industry Job Start Date Job End Date 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, 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 Not on maikel e Not on file documented as of this encounter Last Filed Vital Signs Vital Sign Reading Time Taken Comments Blood Pressure 118/60 01/02/2025 10:48 AM EDT Pulse 68 01/02/2025 10:48 AM EDT Temperature - - Respiratory Rate 16 01/02/2025 10:48 AM EDT Oxygen Saturation 97% 01/02/2025 10:48 AM EDT Inhaled Oxygen Concentration - - Weight 109.8 kg (242 lb) 01/02/2025 10:20 AM EDT Height - - Body Mass Index 32.82 10/30/2024 1:33 PM EDT documented in this encounter Progress Notes * Chanda Ybarra RN - 01/02/2025 10:15 AM EDT Pt discharged stable Actemra 440mg documented in this encounter Plan of Treatment Upcoming Encounters Date Type Department Care Team (Late st Contact Info) Description 01/30/2025 10:30 AM EST Office Visit [facility] [address] [place] [address] 02/27/2025 10:30 AM EST Office Visit [facility] [address] [place] [address] 03/27/2025 10:15 AM EST Office Visit [facility] [address] [place] [address] 04/02/2025 10:15 AM EST Office Visit [facility] [address] [facility] [address] [place] [phone] Daphne Mendoza MD [address] [place] [address] 04/09/2025 10:00 AM EST Office Visit [facility] [address] [place] [address] Bree Gonsalez MD [address] [place] [address] 07/01/2025 9:15 AM EDT Office Visit [facility] [address] [address] Jose Rangel MD [address] [place] [address] documented as of this encounter Visit Diagnoses [...] Action Date Dose Rate Site tocilizumab (ACTEMRA) 440 mg in sodium chloride 0.9 % 100 mL infusion 440 mg (rounded from 439.2 mg = 4 mg/kg 109.8 kg), Intravenous, ONCE, 1 dose, On Tue01/02/25 at 1030, at 100 mL/hr, Allow fully diluted solution to reach room temperature prior to infusion., Dx: 1. Lung disease, interstitial (HCC) 2. Seronegative rheumatoid arthritis (HCC) 3. Encounter for long-term (current) use of high-risk medication 4. Scleroderma (HCC)Indications:Lung disease, interstitial (HCC),Seronegative rheumatoid arthritis (HCC),Encounter for long-term (current) use of high-risk medication,Scleroderma (HCC) IV Started 01/02/2025 10:22 AM EDT 440 mg 100 mL/hr documented in this encounter Orders Medications Ordered That Magdaleno ht Not Have Been Administered Count Last Ordered Date First Ordered Date tocilizumab (ACTEMRA) 440 mg in sodium chloride 0.9 % 100 mL infusion 1 01/02/2025 documented in this encounter Care Teams Manager Intelligence Relationship Specialty Start Date End Date Katlyn Eid [facility] [address] [place] [address] PCP - General Family Medicine 10/22/15 Bree Gonsalez MD [address] [facility] [place] [address] Internal Medicine-Rheumatology 06/20/23 Amada Yo, Clerical Staff Financial Counselor 03/14/24 documented as of this encounter
--- OUTSIDE RECORDS SUMMARY | 2025-01-08 10:20 | XMS_ITS | Encounter Summary ---
Author Organization [facility] Address [address] [place] [address] Care Team Providers Care Buffer Inflated Pad Name Role Phone Katlyn Eid Primary Care Provider [phone] Bree Gonsalez MD Unavailable Amada Yo Clerical Staff Unavailable Reason for Visit * Reason Comments Scleroderma Encounter Details Date Type Department Care Team (Latest Contact Info) Description 01/08/2025 10:20 AM EST Office Visit [facility] [address] [place] [address] Bree Gonsalez MD [address] [place] [address] Scleroderma (HCC) (Primary Dx); Scleroderma with pulmonary involvement (HCC); Seronegative rheumatoid arthritis (HCC); Chronic gout without tophus, unspecified cause, unspecified site; Primary osteoarthritis of right hip; Gastroesophageal reflux disease without esophagitis; ILD (interstitial lung disease) (HCC); Encounter for long-term (current) use of NSAIDs; Encounter for long-term (current) use of high-risk medication; Eosinophilic asthma; Flu vaccine need Social History Tobacco Use Types Packs/Day Years [...] Industry Job Start Date Job End Date 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, 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[employer] Not on file Not on maikel e Not on file documented as of this encounter Last Filed Vital Signs Vital Sign Reading Time Taken Comments Blood Pressure 126/66 01/08/2025 9:54 AM EST Pulse - - Temperature 36.8 C (98.2 F) 01/08/2025 9:54 AM EST Respiratory Rate - - Oxygen Saturation - - Inhaled Oxygen Concentration - - Weight 109.4 kg (241 lb 3.2 oz) 01/08/2025 9:54 AM EST Height 182.9 cm (6') 01/08/2025 9:54 AM EST Body Mass Index 32.71 01/08/2025 9:54 AM EST documented in this encounter Progress Notes * Bree Gonsalez MD - 01/08/2025 10:20 AM EST Images from the original note were not included. Subjective Subjective: Patient ID: Faustino Hand is a 64 y.o. male. Chief Complaint Patient presents with Scleroderma HPI: Faustino Hand is a 64 y.o.male who presents for RNA polymerase 3 positive systemic sclerosis ( LUCY 1:640, nuclear, nucleolar , RNA santana 3 positive, inflammatory arthritis, itching, sclerodactyly, abnormal nailfold capillaroscopy ) Previous medications: - methotrexate 6 pills weekly ( 08/28- 10/28 )diarrhea Current medications: - allopurinol 100 mg daily ( 09/27- ) - cellcept 1000 mg BID ( 10/11/23- )dose increased from 500 mg BID to 1000 mg BID on 11/16/23, 3 tablets in AM and 2 tablets in PM on 12/28/23, lowered to 1000 mg BID on 02/27/24- HTN - actemra IV ( 04/23/24- ) Events since last visit: - he takes cellcept 1000 mg twice a day, actemra IV every 4 weeks - HRCT Chest and PFTs on 10/29/24 - he is doing well, stays active - he has not had a flu shot - he continues to take fasenra every 8 weeks : for eosinophilic asthma - ROS negative for raynauds, digital ulcers, skin tightening reviewed labs done on 11/07/24 - normal CBC, creat, LFTs - uric acid 5.9 HRCT chest 10/29/24- Stable mild to moderate bilateral lower lobe subpleural nonspecific interstitial fibrosis and bilateral lower lobe bronchiectasis. PFTs 10/29/24- normal The pain / function / disease activity questionnaire was filled out by the patient and reviewed with me. Function on mHAQ = 1.6 Pain on 10-cm VAS = 2.5 PTGL= 2.5 Disease Activity on RAPID 3 = 2.2 REVIEW OF SYSTEMS See HPI for further details. Review of systems otherwise negative. Past Medical History: Diagnosis Date Allergy Possibly sulfa [address] prescribed too much Arthritis Have been told I have Asthma follows with pulmonary for eosinophilic asthma. Uses inhalers Broken ankle 2006 no surgery required Diverticulosis GERD (gastroesophageal reflux disease) 20 yrs ago Heartburn High cholesterol History of broken nose History of snoring Hypertension Was well controlled Kidney disease Kidney stone Night sweats Post-operative nausea and vomiting with lithotripsy Scleroderma (HCC) Wears glasses Social History Tobacco Use Smoking status: Never Passive exposure: Never Smokeless tobacco: Never Substance Use Topics Alcohol use: Never Family History Problem Relation Age of Onset Heart Disease Father 1988 COPD Father Heart Failure Father Had a rhumatic heart 1988 High Blood Pressure Father 1988 Hypertension Father in 1988 Allergies Other High Blood Pressure Mother Cancer Mother Lymphoma and was cured Vision Loss Maternal Grandmother approx 1990 Cancer Paternal Uncle heavy smoker Anesth Problems Neg Hx Allergies Allergen Reactions Sulfa (Sulfonamide Antibiotics) Other (See Comments) Abdominal swelling and developed jaundice Outpatient Medications Marked as Taking for the 01/08/25 encounter (Office Visit) with Bree Gonsalez MD Medication Sig Dispense Refill albuterol (PROVENTIL HFA;VENTOLIN HFA) 90 mcg/actuation Inhl HFA Aerosol Inhaler Inhale 2 Puffs into the lungs every 6 hours as needed for Wheezing. 1 Each 3 allopurinoL (ZYLOPRIM) 100 mg Oral Tablet Take 1 Tablet by mouth daily. 90 Tablet 0 amLODIPine (NORVASC) 10 mg Oral Tablet Take 10 mg by mouth daily. benralizumab (FASENRA) 30 mg/mL SubQ Subcutaneous (Inject under the skin) 1 mL Every 8 weeks. every8 weeks 1 mL 6 budesonide-formoteroL (SYMBICORT) 160-4.5 mcg/actuation Inhl HFA Aerosol Inhaler INHALE 2 PUFFS BY MOUTH 2 TIMES A DAY 30.6 g 1 Cholecalciferol, Vitamin D3, 125 mcg (5,000 unit) Oral Tablet Take 125 mcg by mouth daily. cyanocobalamin 1,000 mcg Oral Tablet Take 1,000 mcg by mouth daily. [DISCONTINUED] diclofenac (VOLTAREN) 75 mg Oral Tablet, Delayed Release (E.C.) Take 1 Tablet by mouth 2 times daily. 60 Tablet 2 fluticasone (FLONASE) 50 mcg/actuation Nasl [place], Suspension 1 [place] by Nasal route every morning. folic acid (FOLVITE) 1 mg Oral Tablet Take 1 Tablet by mouth daily. 90 Tablet 0 levocetirizine (XYZAL) 5 mg Oral Tablet Take 5 mg by mouth daily. losartan-hydrochlorothiazide (HYZAAR) 50-12.5 mg Oral Tablet Take 1 Tablet by mouth daily. 90 Tablet 1 montelukast (SINGULAIR) 10 mg Oral Tablet Take 1 Tablet by mouth every evening. 30 Tablet 4 mycophenolate (CELLCEPT) 500 mg Oral Tablet Take 2 Tablets by mouth 2 times daily. 120 Tablet 1 tocilizumab (ACTEMRA IV) Inject into the vein every 28 days. Objective: Vital Signs: BP 126/66 (BP Location: Right arm, Patient Position: Sitting) Temp 98.2 ??F (36.8 ??C) (Forehead) Ht 6' (1.829 m) Wt 241 lb 3.2 oz (109.4 kg) BMI 32.71 kg/m?? Body mass index is 32.71 kg/m??. Physical Exam CONST: well developed, well nourished, no apparent distress EYES: pupils equal/ round/ sclera white, conjunctiva pink and moist ENT: oropharynx clear without exudates, mucus membranes moist NECK: supple without lymphadenopathy, no thyromegaly, no masses RESP: clear to auscultation bilaterally without wheezes/rhonchi/rales CV: regular rate and rhythm without murmurs/rubs/gallops, no edema/cyanosis/clubbing SKIN: nailfold capillaroscopy abnormal- dilated capillary loops bilateral 3,4 digits diffuse swelling 2-5 fingers bilateral, swelling bilateral 3,4 MCPs. Left hand: improved flexion . Healed wound right 5th PIP MRSS 6 -->14 -->14 (11/15/23)--> 14 (12/27/23 )( bilateral hands, distal to PIPs , right hand, forearm)--> bilateral hands, forearms, unable to extend or flex fingers fully-->12 (05/01/23)--> 8 (07/09/24), able to make near complete fist right hand--> 8 (10/09/24), left hand: able toclose 3 fingers Assessment and Plan: Diagnoses and all orders for this visit: Scleroderma (HCC) (Chronic) Overview: - RNA polymerase 3 positive systemic sclerosis , LUCY 1:640, nuclear, nucleolar , RNA santana 3 positive, inflammatory arthritis, itching, sclerodactyly, abnormal nailfold capillaroscopy - CT chest, abdomen, pelvis did not show any e/o malignancy, RHC ruled out PAH, normal PSA level, uptodate with colonoscopy - CT chest: Minimal increased lingular and bilateral dependent lower lobe , PET scan 11/04/23- Thereare interstitial opacities in the lung bases bilaterally, similar to 07/26/2023, compatible with interstitial lung disease - started methotrexate 6 pills weekly in 08/28, stopped in 10/28 due to diarrhea and ILD - started cellcept 500 mg BID on 10/11/23, dose increased to 1000 mg BID on 11/15/23,3 tablets in AM and 2 tablets in PM on 12/28/23, lowered to 1000 mg BID on 02/27/24-side effects of high blood pressure - HRCT chest 02/07/24- Stable mild to moderate bilateral lower lobe subpleural nonspecific interstitial fibrosis and bilateral lower lobe bronchiectasis. - started IV actemra on 04/23/24 with good improvement in MRSS - HRCT chest 10/29/24- Stable mild to moderate bilateral lower lobe subpleural nonspecific interstitial fibrosis and bilateral lower lobe bronchiectasis. - PFTs 10/29/24- normal - he would beneift from going up on the dose of cellcept, but he developed side effects of HTN,so for now, we will continue cellcept 1000 mg twice a day, actemra IV every 4 weeks, monitor MRSS. ILD has remained stable Orders: - CBC; Future - CREATININE; Future - HEPATIC FUNCTION PANEL; Future - VITAMIN B12/ FOLIC ACID; Future Scleroderma with pulmonary involvement (HCC) (Chronic) - CBC; Future - CREATININE; Future - HEPATIC FUNCTION PANEL; Future - VITAMIN B12/ FOLIC ACID; Future Seronegative rheumatoid arthritis (HCC) (Chronic) - CBC; Future - CREATININE; Future - HEPATIC FUNCTION PANEL; Future - VITAMIN B12/ FOLIC ACID; Future Chronic gout without tophus, unspecified cause, unspecified site Overview: - right podagra, uric acid 7.4 - started allopurinol 100 mg daily in 09/27 - uric acid 7.4-->6 - The diagnosis of gouty arthritis was discussed. I did discuss modifiable risk factors, mainly food and weight. The association was discussed of gout and food containing high uric acid, particularlymeat, shellfish, and alcohol. The importance of dietary modification and weight reduction was discussed. - Plan: repeat uric acid level Orders: - CBC; Future - CREATININE; Future - HEPATIC FUNCTION PANEL; Future - VITAMIN B12/ FOLIC ACID; Future - URIC ACID; Future Primary osteoarthritis of right hip Gastroesophageal reflux disease without esophagitis ILD (interstitial lung disease) (HCC) (Chronic) Encounter for long-term (current) use of NSAIDs Encounter for long-term (current) use of high-risk medication Overview: Medication safety questionnaire DVT:no PE: no TX:no Heart failure: no Stroke: no Shingles:no diverticulitis: no IBD: no skin psoriasis: no depression: no Cancer including skin cancer: no Multiple sclerosis: no, FH:no Cancer screening: - colonoscopy-in 2017- normal - PSA level normal in 2018,06/28 - left axillary LN biopsy 12/06/23- benign Monitoring parameters: - TB quantiferon negative- 06/22/23, 05/01/24 - Hep A IgM, B sAG, core Ab, C Ab NR- 06/22/23, 05/01/24 - CT chest, abdomen, pelvis 07/26/23- no e/o malignancy - HRCT chest 02/07/24, 10/29/24- stable ILD - PFTs 10/29/24- normal - PET scan 11/04/23- diffuse lymphadenopathy Discussed risks and benefits of Mycophenolate Mofetil (CellCept, Myfortic, MMF). Risks including but not limited to GI (abdominal pain, nausea, vomiting, diarrhea), cardiovascular (edema), headache, malignancies (including lymphoma), hepatotoxicity, hematologic (anemia, leukopenia, pancytopenia), neurologic (PML), and/or infections. - Patient understands that regular lab work is required while on this therapy. - Counseled patient about risk of harm, including . Counseled patient of our no policy while on this therapy. Discussed with patient that reliable means of contraception should be used. Two forms of contraceptives should be used (including barrier) as the medication can reduce the effectiveness of oral contraceptives. - Patient understands to hold med for infections. - Patient instructed to read educational material concerning medication. - Discussed risks and benefits of the IL-6 inhibitor, Actemra. Risks including but not limited to skin rash (including basal and squamous cell carcinoma), hyperlipidemia, hematological (low blood counts), immunologic (antibody development, loss of efficacy), infection, site reactions, elevated liver proteins were discussed in detail with the patient today. - Patient understands that regular lab work is required while on this therapy. - Patient understands to hold med for infections or surgery. Should contact us for further guidanceon how/when to hold the therapy. Orders: - CBC; Future - CREATININE; Future - HEPATIC FUNCTION PANEL; Future - VITAMIN B12/ FOLIC ACID; Future Eosinophilic asthma (Chronic) - on fasenra [id number] Flu vaccine need - counseled to get flu vaccine Instructions: - monitoring labs in first week of February ( ST [facility] ) - continue cellcept 1000 mg twice a day - continue actemra IV every 4 weeks - counseled to get flu vaccine - RTC in 3 months This is a moderate complexity [id number] visit based on reviewing outside records, reviewing outside results, obtaining history and physical examination, and ordering unique testing required for the patient's evaluation and care. I reviewed symptoms, imaging findings, laboratory results, physical findings, and treatment to date. I have answered patient's questions, and patient statedsatisfaction regarding the treatment plan and recommendations. Total time 36 minutes with over 50% spent in counseling and/or coordinating care. Return in about 3 months (around 04/10/2025) for scleroderma. documented in this encounter Miscellaneous Notes * Patient Instructions - Bree Gonsalez MD - 01/08/2025 10:20 AM EST - monitoring labs in first week of February ( ) - continue cellcept 1000 mg twice a day - continue actemra IV every 4 weeks - counseled to get flu vaccine - RTC in 3 months If you are undergoing a surgery, recommend stopping biologics/DMARDS atleast 7- 10 days depending onwhich biologic you are on, due to increased risk of infection. Biologics/DMARDS can be restarted once the wound shows signs of healing, typically around 14 days, recommend getting clearance from the surgeon before restarting biologic. Rare but serious infections and cancers may develop in patients on these immunosuppressants, which can cause complications like sepsis or even . Stopping too soon may lead to a flare, while stopping too close to surgery may make you more vulnerable to surgical-related infections and delayed wound healing If you develop an infection or you have to take antibiotics for an infection, you must temporarily stop taking your biologic/DMARDS until the infection is resolved and you remain symptom free for atleast 24 hours before restarting the biologic/DMARDS.There is an increased risk of infection getting worse or delayed recovery since your immunity is low while on biologics. Severe infection can lead to sepsis and even . Recommend calling our office to let us know what infection you have or whatsurgery you are going to undergo , so that we can guide you further. documented in this encounter Plan of Treatment Upcoming Encounters Date Type Department Care Team (Late st Contact Info) Description 01/30/2025 10:30 AM EST Office Visit [facility] [address] [place] [address] 02/27/2025 10:30 AM EST Office Visit [facility] [address] [facility] [place] [address] 03/27/2025 10:15 AM EST Office Visit [facility] [address] [facility] [address] 04/02/2025 10:15 AM EST Office Visit [facility] [address] [place] [address] Daphne Mendoza MD [address] [place] [address] 04/09/2025 10:00 AM EST Office Visit [facility] [address] [place] [address] Bree Gonsalez MD [address] [place] [address] 07/01/2025 9:15 AM EDT Office Visit [facility] [address] [address] Jose Rangel MD [address] [place] [address] [phone] Scheduled Orders Name Type Priority Associated Diagnoses Orde r Schedule CBC Lab Routine Scleroderma (HCC) Scleroderma with pulmonary involvement (HCC) Seronegative rheumatoid arthritis (HCC) Chronic gout without tophus, unspecified cause, unspecified site Encounter for long-term (current) use of high-risk medication 1 Occurrences starting 01/08/2025 until 01/08/2026 CREATININE Lab Routine Scleroderma (HCC) Scleroderma with pulmonary involvement (HCC) Seronegative rheumatoid arthritis (HCC) Chronic gout without tophus, unspecified cause, unspecified site Encounter for long-term (current) use of high-risk medication 1 Occurrences starting 01/08/2025 until 01/08/2026 HEPATIC FUNCTION PANEL Lab Routine Scleroderma (HCC) Scleroderma with pulmonary involvement (HCC) Seronegative rheumatoid arthritis (HCC) Chronic gout without tophus, unspecified cause, unspecified site Encounter for long-term (current) use of high-risk medication 1 Occurrences starting 01/08/2025 until 01/08/2026 VITAMIN B12/ FOLIC ACID Lab Routine Scleroderma (HCC) Scleroderma with pulmonary involvement (HCC) Seronegative rheumatoid arthritis (HCC) Chronic gout without tophus, unspecified cause, unspecified site Encounter for long-term (current) use of high-risk medication 1 Occurrences starting 01/08/2025 until 07/10/2025 URIC ACID Lab Routine Chronic gout without tophus, unspecified cause, unspecified site 1 Occurrences starting 01/08/2025 until 01/08/2026 documented as of this encounter Visit Diagnoses Diagnosis Scleroderma (HCC)- Primary Systemic sclerosis Scleroderma with pulmonary involvement (HCC) Seronegative rheumatoid arthritis (HCC) Rheumatoid arthritis Chronic gout without tophus, unspecified cause, unspecified site Primary osteoarthritis of right hip Primary localized osteoarthrosis, pelvic region and thigh Gastroesophageal reflux disease without esophagitis Esophageal reflux ILD (interstitial lung disease) (HCC) Postinflammatory pulmonary fibrosis Encounter for long-term (current) use of NSAIDs Encounter for long-term (current) use of non-steroidal anti-inflammatories Encounter for long-term (current) use of high-risk medication Encounter for long-term (current) use of other medications Eosinophilic asthma Pulmonary eosinophilia Flu vaccine need Need for prophylactic vaccination and inoculation against influenza documented in this encounter Discontinued Medications Medication Sig Discontinue Reason Start Date End Da te diclofenac (VOLTAREN) 75 mg Oral Tablet, Delayed Release (E.C.)Indications:Sclero derma (HCC),Seronegative rheumatoid arthritis (HCC),Encounter for long-term (current) use of NSAIDs Take 1 Tablet by mouth 2 times daily. Cancelled by 06/21/2024 01/08/2025 documented as of this encounter Care Teams Buffer Inflated Pad Relationship Specialty Start Date End Date Katlyn Eid [address] [place] [address] [address] [place], [place] [id number] PCP - General Family Medicine 10/22/15 Bree Gonsalez MD [address] [place] [address] Internal Medicine-Rheumatology 06/20/23 Amada Yo, Clerical Staff Financial Counselor 03/14/24 documented as of this encounter
--- OUTSIDE RECORDS SUMMARY | 2025-01-15 15:03 | XMS_ITS | Clinical Summary ---
Author Organization [facility] Address [facility] [place] [address] Care Team Providers Care Brake Engineer Name Role Phone Unavailable Primary Care Provider Unavailabl e Source Comments This information has been disclosed to you from confidential records protectedfrom disclosure by state law. You shall make no further disclosure of thisinformation without the specific, written, and informed release of theindividual to whom it pertains, or as otherwise permitted by law. A generalauthorization for the release of medical or other information is not sufficientfor the purposes of therelease of HIV test results or diagnoses. [id number] Social History Tobacco Use Types Packs/Day Years Used Date Smoking Tobacco: Never Assessed Sex and Gender Information Value Date Recorded Sex Assigned at Not on file Legal Sex Male 10:29 PM EST Gender Identity Not on file Sexual Orientation Not on file Plan of Treatment Not on file
--- OUTSIDE RECORDS SUMMARY | 2025-01-15 15:03 | XMS_ITS | Clinical Summary ---
Author Organization [facility] Address [address] [place] [address] Care Team Providers Care Back Maker Name Role Phone None, None Primary Care Provider Unavailabl e Allergies Active Allergy Reactions Criticality Noted Date Comments Sulfa (Sulfonamide Antibiotics) 11/05 Medications albuterol (VENTOLIN/PROAI R/PROVENTIL HFA) 90 mcg/actuation HFA Aerosol Inhaler Take 2 Puffs by inhalation every 4 to 6 hours as needed. Active PROAIR HFA 90 mcg/actuation HFA Aerosol Inhaler INHALE 2 PUFFS INTO THE LUNGS 4 TIMES DAILY 2 9 Active budesonide-form oterol (SYMBICORT) 160-4.5 mcg/actuation HFA Aerosol Inhaler Take 2 Puffs by inhalation. 9 Active fluticasone propionate (FLONASE) 50 mcg/actuation nasal spray [place] into nose. Active lansoprazole (PREVACID) 30 mg Capsule, Delayed Release(E.C.) Take 30 mg by mouth. Active Albuterol-Iprat ropium (DUONEB) 0.5 mg-3 mg(2.5 mg base)/3 mL nebulizer solution Take 3 mL by inhalation. 9 Active Levocetirizine (XYZAL) 5 mg Tablet 8 Active losartan (COZAAR) 50 mg Tablet Take 50 mg by mouth. Active SIMVASTATIN PO Take by mouth. Active Active Problems Problem Noted Date Diagnosed Date Discomfort of right hip 07/11/2018 Family History Medical History Relation Name Comments Heart Disease Father Relation Name Status Comments Father Mother Alive Social History Tobacco Use Types Packs/Day Years Used Date Smoking Tobacco: Never Smokeless Tobacco: Never Alcohol Use Standard Drinks/Week Comments Never 0 (1 standard drink = 0.6 oz pur e alcohol) AUDIT-C Answer Date Recorded Frequency of Alcohol Consumption Never 07/11/2018 Average Number of Drinks Not on file 019 Frequency of Binge Drinking Not on file 09/2018 Sex and Gender Information Value Date Recorded Sex Assigned at Not on file Legal Sex Male 2:12 PM EDT Gender Identity Not on file Sexual Orientation Not on file Last Filed Vital Signs Vital Sign Reading Time Taken Comments Blood Pressure - - Pulse 85 07/11/2018 2:41 PM EDT Temperature - - Respiratory Rate 14 07/11/2018 2:41 PM EDT Oxygen Saturation 98% 07/11/2018 2:41 PM EDT Inhaled Oxygen Concentration - - Weight 112.5 kg (248 lb) 07/11/2018 2:41 PM EDT Height 182.9 cm (6') 07/11/2018 2:41 PM EDT Body Mass Index 33.63 07/11/2018 2:41 PM EDT Plan of Treatment Health Maintenance Due Date Last Done Comments Cologuard 1959 Colonoscopy 1959 Colorectal Cancer Screening 1959 FIT 1959 Lipid Monitoring 12/29/1976 Tetanus Vaccination (Every 10 Years) 12/29/1977 Hepatitis C Virus (HCV) Screening 12/29/1980 Pneumococcal Vaccine: 50+ Years (1 of 1 - PCV) 010 Zoster-RZV(Shingrix) (1 of 2) 12/29/2009 Depression Screening 03/07/2024 COVID-19 Vaccine (1 - 2024- season) 2024 Influenza Vaccination (#1) 2024 Advance Care Planning 12/29/2024 Fall Risk Assessment 12/29/2024 RSV Vaccines (1 - 1-dose 75+ series) 12/29/2034 Insurance Care Teams Back Maker Relationship Specialty Start Date End Date None, None [address] [facility] [place] [address] PCP - General 07/11/18
--- OUTSIDE RECORDS SUMMARY | 2025-01-15 15:03 | XMS_ITS | Encounter Summary ---
Author Organization [place] [address] Care Team Providers Care Business Management Associate Name Role Phone Katlyn Eid Primary Care Provider [phone] Bree Gonsalez MD Unavailable Amada Yo Clerical Staff Unavailable Encounter Details Date Type Department Care Team (Late st Contact Info) Description 12/06/2023 Orders Only [facility] [address] [facility] [place] [address] Jamaica Medina MD [address] [facility] [place] [address] Social History Tobacco Use Types Packs/Day Years Used Date Smoking Tobacco: Never Passive Smoke Exposure: Never Smokeless Tobacco: Never Alcohol Use Standard Drinks/Week Comments No 0 (1 standard drink = 0.6 oz pur e alcohol) Sexually Active Control Partners Comments Not Currently Other-see comments Female had a historectomy Sex and Gender Information Value Date Recorded Sex Assigned at Not on file Legal Sex Male 2:37 AM EDT Gender Identity Not on file Sexual Orientation Not on file Occupation Industry Job Start Date Job End Date 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, 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[employer] Not on file Not on maikel e Not on file documented as of this encounter Plan of Treatment Upcoming Encounters Date Type Department Care Team (Late st Contact Info) Description 01/30/2025 10:30 AM EST Office Visit [facility] [address] [place] [address] 02/27/2025 10:30 AM EST Office Visit [facility] [address] [place] [address] 03/27/2025 10:15 AM EST Office Visit [facility] [address] [place] [address] 04/02/2025 10:15 AM EST Office Visit [facility] [address] [place] [address] Daphne Mendoza MD [address] [place] [address] 04/09/2025 10:00 AM EST Office Visit [facility] [address] [place] [address] Bree Gonsalez MD [address] [place] [address] 07/01/2025 9:15 AM EDT [place] [address] Jose Rangel MD [address] [place] [address] documented as of this encounter Procedures Procedure Name Priority Date/Time Associated Diagnosis Comments NEOGENOMICS T&B TISSUE PANEL Routine 12/06/2023 9:51 AM EDT documented in this encounter Results * NEOGENOMICS T&B TISSUE PANEL (12/06/2023 9:51 AM EDT) 12/06/2023 9:51 AM EDT Narrative [facility] - 12/08/2023 7:42 PM EDT Requesting Provider: PABLITO Washingtonjd Specimen = [id number] Jamaica Medina MD PATHOLOGY ORDERABLES Final Result [facility] [address] [place] [address] documented in this encounter Visit Diagnoses Not on filedocumented in this encounter Care Teams Business Management Associate Relationship Specialty Start Date End Date Katlyn Eid [address] [facility] [address] [place] [address] PCP - General Family Medicine 10/22/15 Bree Gonsalez MD [address] [place] [address] Internal Medicine-Rheumatology 06/20/23 Amada Yo, Clerical Staff Financial Counselor 03/14/24 documented as of this encounter
--- OUTSIDE RECORDS SUMMARY | 2025-01-15 15:04 | XMS_ITS | Encounter Summary ---
Author Organization [facility] Address [address] [place] [address] Care Team Providers Care Outbound Sales Professional Name Role Phone Stanton Katlyn Toledo Primary Care Provider [phone] Bree Gonsalez MD Unavailable Amada Yo Clerical Staff Unavailable Reason for Visit * Reason Onset Date Comments Medication Refill 12/16/2024 Encounter Details Date Type Department Care Team (Late st Contact Info) Description 12/16/2024 Refill [facility] [address] [place] [address] Bree Gonsalez MD [address] [place] [address] Medication Refill Social History Tobacco Use Types Packs/Day Years [...] Industry Job Start Date Job End Date 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, 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 on file Not on maikel e Not on file documented as of this encounter Miscellaneous Notes * Telephone Encounter - Diane Elliott MA - 12/17/2024 10:25 AM EDT LCV 10/09/24 NCV 01/08/25 Last sent 10/18/24 Duplicate declined documented in this encounter Plan of Treatment Upcoming Encounters Date Type Department Care Team (Late st Contact Info) Description 01/30/2025 10:30 AM EST Office Visit [facility] [address] [place] [address] 02/27/2025 10:30 AM EST Office Visit [facility] [address] [place] [address] 03/27/2025 10:15 AM EST Office Visit [facility] [address] [place] [address] 04/02/2025 10:15 AM EST Office Visit [facility] [address] [place] [address] Daphne Mendoza MD [address] [place] [address] 04/09/2025 10:00 AM EST Office Visit [facility] [address] [place] [address] Bree Gonsalez MD [address] [place] [address] 07/01/2025 9:15 AM EDT [place] [address] Jose aRngel MD [address] [place] [address] documented as of this encounter Visit Diagnoses Diagnosis Scleroderma (HCC) Systemic sclerosis Encounter for long-term (current) use of high-risk medication Encounter for long-term (current) use of other medications documented in this encounter Care Teams Outbound Sales Professional Relationship Specialty Start Date End Date Katlyn Eid [address] [facility] [address] [place] [address] PCP - General Family Medicine 10/22/15 Bree Gonsalez MD [facility] [place] [address] Internal Medicine-Rheumatology 06/20/23 Amada Yo, Clerical Staff Financial Counselor 03/14/24 documented as of this encounter
--- OUTSIDE RECORDS SUMMARY | 2025-01-15 15:04 | XMS_ITS | Encounter Summary ---
Author Organization [facility] Address [address] [place] [address] Care Team Providers Care Redipper Name Role Phone Stanton Katlyn Toledo Primary Care Provider [phone] Bree Gonsalez MD Unavailable Amada Yo Clerical Staff Unavailable Reason for Visit * Reason Comments Medication Refill Encounter Details Date Type Department Care Team (Late st Contact Info) Description 12/17/2024 Refill [facility] [address] [place] [address] Bree Gonsalez MD [address] [place] [address] Medication Refill Social History Tobacco [...] Industry Job Start Date Job End Date 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, 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 on file Not on maikel e Not on file documented as of this encounter Miscellaneous Notes * Telephone Encounter - Diane Elliott MA - 12/17/2024 10:29 AM EDT LCV 10/09/24 NCV 01/08/25 Last sent 10/18/24 Called pharmacy to verify too soon to fill documented in this encounter Plan of Treatment Upcoming Encounters Date Type Department Care Team (Late st Contact Info) Description 01/30/2025 10:30 AM EST Office Visit [facility] [address] [place] [address] 02/27/2025 10:30 AM EST Office Visit [facility] [address] [place] [address] 03/27/2025 10:15 AM EST Office Visit [facility] [address] [place] [address] 04/02/2025 10:15 AM EST Office Visit [facility] [address] [place] [address] Daphne Mendoza MD [address] [place] [address] 04/09/2025 10:00 AM EST Office Visit [facility] [address] [place] [address] Bree Gonsalez MD [address] [place] [address] 07/01/2025 9:15 AM EDT Office [place] [address] Jose Rangel MD [address] [place] [address] documented as of this encounter Visit Diagnoses Diagnosis Scleroderma (HCC) Systemic sclerosis Encounter for long-term (current) use of high-risk medication Encounter for long-term (current) use of other medications documented in this encounter Care Teams Redipper Relationship Specialty Start Date End Date Katlyn Eid [address] [facility] [address] [place] [address] PCP - General Family Medicine 10/22/15 Bree Gonsalez MD [facility] [place] [address] Internal Medicine-Rheumatology 06/20/23 Amada Yo, Clerical Staff Financial Counselor 03/14/24 documented as of this encounter
--- OUTSIDE RECORDS SUMMARY | 2025-01-15 15:04 | XMS_ITS | Encounter Summary ---
Author Organization [facility] Address [address] [place] [address] Care Team Providers Care Coverstitch Machine Operator Name Role Phone StantonKatlyn Primary Care Provider [phone] Bree Gonsalez MD Unavailable Amada Yo Clerical Staff Unavailable Reason for Visit * Reason Onset Date Comments Medication Refill 11/29/2024 Encounter Details Date Type Department Care Team (Late st Contact Info) Description 11/29/2024 Refill [facility] [address] [place] [address] Bree Gonsalez MD [address] [place] [address] Medication Refill Social History Tobacco [...] Industry Job Start Date Job End Date 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 120 Tablet 1 11/29/2024 documented in this encounter Miscellaneous Notes * Telephone Encounter - Diane Elliott MA - 11/29/2024 3:15 PM EDT LCV 10/09/24 NCV 01/08/25 Labs 11/07/24 documented in this encounter Plan of Treatment Upcoming Encounters Date Type Department Care Team (Late st Contact Info) Description 01/30/2025 10:30 AM EST Office Visit [facility] [address] [place] [address] 02/27/2025 10:30 AM EST Office Visit [facility] [address] [place] [address] 03/27/2025 10:15 AM EST Office Visit [facility] [address] [place] [address] 04/02/2025 10:15 AM EST Office Visit [facility] [address] [facility] [address] [place] [address] Daphne Mendoza MD [address] [facility] [place] [address] 04/09/2025 10:00 AM EST Office Visit [facility] [address] [place] [address] Bree Gonsalez MD [address] [place] [address] 07/01/2025 9:15 AM EDT [place] [address] Jose Rangel MD [address] [facility] [place] [address] documented as of this encounter Visit Diagnoses Diagnosis Scleroderma (HCC) Systemic sclerosis Seronegative rheumatoid arthritis (HCC) Rheumatoid arthritis Scleroderma with pulmonary involvement (HCC) Encounter for long-term (current) use of high-risk medication Encounter for long-term (current) use of other medications documented in this encounter Discontinued Medications Medication Sig Discontinue Reason Start Date End Da te mycophenolate (CELLCEPT) 500 mg Oral TabletIndications:Sclero derma (HCC),Seronegative rheumatoid arthritis (HCC),Scleroderma with pulmonary involvement (HCC),Encounter for long-term (current) use of high-risk medication Take 2 Tablets by mouth 2 times daily. Reorder 10/03/2024 11/29/2024 documented as of this encounter Care Teams Coverstitch Machine Operator Relationship Specialty Start Date End Date Katlyn Eid [address] [place] [address] PCP - General Family Medicine 10/22/15 Bree Gonsalez MD [address] [place] [address] Internal Medicine-Rheumatology 06/20/23 Amada Yo, Clerical Staff Financial Counselor 03/14/24 documented as of this encounter
--- OUTSIDE RECORDS SUMMARY | 2025-01-15 15:04 | XMS_ITS | Encounter Summary ---
Author Organization [facility] Address [address] [place] [address] Care Team Providers Care Radiology Teacher Name Role Phone Katlyn Eid Primary Care Provider [phone] Bree Gonsalez MD Unavailable Amada Yo Clerical Staff Unavailable Encounter Details Date Type Department Care Team (Latest Contact Info) Description 11/08/2024 Results Follow-Up [facility] [address] [place] [address] Bree Gonsalez MD [address] [place], [place] [id number] CBC WITH AUTO DIFF-QUEST, CREATININE-QUEST, HEPATIC FUNCTION PANEL-QUEST, URIC ACID-QUEST Social History Tobacco Use Types Packs/Day Years [...] Industry Job Start Date Job End Date 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, 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 on file Not on maikel e Not on file documented as of this encounter Progress Notes * Bree Gonsalez MD - 11/08/2024 9:02 AM EDT reviewed labs done on 11/07/24 - normal CBC, creat, LFTs - uric acid 5.9 documented in this encounter Plan of Treatment Upcoming Encounters Date Type Department Care Team (Late st Contact Info) Description 01/30/2025 10:30 AM EST Office Visit [facility] [address] [place] [address] 02/27/2025 10:30 AM EST Office Visit [facility] [address] [place] [address] 03/27/2025 10:15 AM EST [facility] [address] [place] [address] 04/02/2025 10:15 AM EST Office Visit [facility] [address] [place] [address] Daphne Mendoza MD [address] [place] [address] 04/09/2025 10:00 AM EST Office Visit [facility] [address] [place] [address] Bree Gonsalez MD [address] [place] [address] 07/01/2025 9:15 AM EDT Office Visit [facility] [address] [address] Jose Rangel MD [address] [place] [address] documented as of this encounter Visit Diagnoses Not on filedocumented in this encounter Care Teams Radiology Teacher Relationship Specialty Start Date End Date Katlyn Eid [facility] [address] [place] [address] PCP - General Family Medicine 10/22/15 Bree Gonsalez MD [address] [facility] [address] [place] [address] Internal Medicine-Rheumatology 06/20/23 Amada Yo, Clerical Staff Financial Counselor 03/14/24 documented as of this encounter
--- OUTSIDE RECORDS SUMMARY | 2025-01-15 15:04 | XMS_ITS | Encounter Summary ---
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[employer] Not on file Not on maikel e Not on file documented as of this encounter Plan of Treatment Upcoming Encounters Date Type Department Care Team (Late st Contact Info) Description 01/30/2025 10:30 AM EST Office Visit [facility] [address] [place] [address] 02/27/2025 10:30 AM EST Office Visit [facility] [address] [place] [address] 03/27/2025 10:15 AM EST Office [facility] [address] [place] [address] 04/02/2025 10:15 AM EST Office Visit [facility] [address] [place] [address] Daphne Mendoza MD [address] [place] [address] 04/09/2025 10:00 AM EST Office Visit [facility] [address] [place] [address] Bree Gonsalez MD [address] [place] [address] 07/01/2025 9:15 AM EDT Office Visit [place] [address] Jose Rangel MD [address] [place] [address] documented as of this encounter Visit Diagnoses Not on filedocumented in this encounter Care Teams Resistor Inspector Relationship Specialty Start Date End Date Katlyn Eid [address] [place] [address] PCP - General Family Medicine 10/22/15 Bree Gonsalez MD [address] [place] [address] Internal Medicine-Rheumatology 06/20/23 Amada Yo, Clerical Staff Financial Counselor 03/14/24 documented as of this encounter
--- OUTSIDE RECORDS SUMMARY | 2025-01-15 15:04 | XMS_ITS | Clinical Summary ---
Author Organization [facility] Address [address] [place] [address] Care Team Providers Care Pre K Special Education Teacher Name Role Phone Tre Eid Primary Care Provider [phone] Allergies Active Allergy Reactions Criticality Noted Date Comments Sulfa Antibiotics Liver Problem 12/10/2012 Medications lansoprazole (PREVACID) 30 MG CPDR Take 30 mg by mouth daily. Active lisinopril (PRINIVIL,ZESTRI L) 10 MG TABS Take 10 mg by mouth daily. Active pseudoephedrine- guaifenesin (MUCINEX D) 60-600 MG TB12 Take 1 tablet by mouth 2 (two) times daily as needed. Active amoxicillin (AMOXIL) 500 MG CAPS Take 500 mg by mouth every 12 (twelve) hours. Active simvastatin (ZOCOR) 20 MG TABS Take 20 mg by mouth at bedtime. Active Social History Tobacco Use Types Packs/Day Years Used Date Smoking Tobacco: Never Alcohol Use Standard Drinks/Week Comments No 0 (1 standard drink = 0.6 oz pur e alcohol) Sex and Gender Information Value Date Recorded Sex Assigned at Not on file Legal Sex Male 8:39 PM EDT Gender Identity Not on file Sexual Orientation Not on file Last Filed Vital Signs Vital Sign Reading Time Taken Comments Blood Pressure 139/93 12/10/2012 5:01 AM EDT Pulse 91 12/10/2012 5:01 AM EDT Temperature 36.6 C (97.9 F) 12/10/2012 4:02 AM EDT Respiratory Rate 16 12/10/2012 5:01 AM EDT Oxygen Saturation - - Inhaled Oxygen Concentration - - Weight - - Height - - Body Mass Index - - Plan of Treatment Health Maintenance Due Date Last Done Comments Hepatitis C Screening 1960 DTap,Tdap,and Td (1 - Tdap) 12/29/1970 Colonoscopy 12/29/2004 PSA YEARLY 12/29/2009 Pneumococcal 50+ (1 of 1 - PCV) 12/29/2009 Shingrix (#1) 12/29/2009 Influenza Vaccine (#1) 2024 RSV Vaccine (60+ or ) (1 - 1-dose 75+ series) 12/29/2034 HPV Aged Out No longer eligi ble based on patient's age to complete this topic Meningococcal conjugate lizy nt 4 (MCV4) Aged Out No longer eligible b ased on patient's age to complete this topic RSV Immunization (<20 months) Aged Out No longer eligible based on patient's age to complete this topic [place] [address] Care Teams Pre K Special Education Teacher Relationship Specialty Start Date End Date Tre Eid [address] [place] [address] PCP - General 12/10/12
--- OUTSIDE RECORDS SUMMARY | 2025-01-15 15:04 | XMS_ITS | Clinical Summary ---
Author Organization [facility] Address [address] [place] [address] Phone Care Team Providers Care Aircraft Pneudraulic Systems Mechanic Name Role Phone Katlyn Eid Primary Care Provider [phone] Bree Gonsalez MD Unavailable Amada Yo Clerical Staff Unavailable Allergies Active Allergy Reactions Criticality Noted Date Comments Sulfa (Sulfonamide Antibiotics) Other (See Comments) High 11/19/2015 Abdominal swelling and developed jaundice Medications fluticasone (FLONASE) 50 mcg/actuation Nasl Gipsy, Suspension 1 Gipsy by Nasal route every morning. Active montelukast (SINGULAIR) 10 mg Oral TabletIndicatio ns:Severe persistent asthma, unspecified whether complicated (HCC) Take 1 Tablet by mouth every evening. 30 Tablet 4 12/03/19 23 Active cyanocobalamin 1,000 mcg Oral Tablet Take 1,000 mcg by mouth daily. 04/21/19 24 Active Cholecalciferol , Vitamin D3, 125 mcg (5,000 unit) Oral Tablet Take 125 mcg by mouth daily. 04/21/19 24 Active albuterol (PROVENTIL HFA;VENTOLIN HFA) 90 mcg/actuation Inhl HFA Aerosol InhalerIndicati ons:Severe persistent asthma, unspecified whether complicated (HCC) Inhale 2 Puffs into the lungs every 6 hours as needed for Wheezing. 1 Each 3 01/25/20 24 Active amLODIPine (NORVASC) 10 mg Oral Tablet Take 10 mg by mouth daily. 04/18/19 25 Active benralizumab (FASENRA) 30 mg/mL SubQIndications :Severe persistent asthma, unspecified whether complicated (HCC) Subcutaneous (Inject under the skin) 1 mL Every 8 weeks. every 8 weeks 1 mL 6 05/17/19 25 Active levocetirizine (XYZAL) 5 mg Oral Tablet Take 5 mg by mouth daily. 06/22/19 25 Active tocilizumab (ACTEMRA IV) Inject into the vein every 28 days. 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 90 Tablet 11/02/19 25 Active budesonide-form oteroL (SYMBICORT) 160-4.5 mcg/actuation Inhl HFA Aerosol InhalerIndicati ons:Severe persistent asthma, unspecified whether complicated (HCC) INHALE 2 PUFFS BY MOUTH 2 TIMES A DAY 30.6 g 1 11/13/19 25 Active losartan-hydroc hlorothiazide (HYZAAR) 50-12.5 mg Oral Tablet Take 1 Tablet by mouth daily. 90 Tablet 1 11/20/19 25 Active mycophenolate (CELLCEPT) 500 mg Oral TabletIndicatio ns:Scleroderma (HCC),Seronegat alex rheumatoid arthritis (HCC),Scleroder ma with pulmonary involvement (HCC),Encounter for long-term (current) use of high-risk medication Take 2 Tablets by mouth 2 times daily. 120 Tablet 1 11/30/19 25 Active folic acid (FOLVITE) 1 mg Oral TabletIndicatio ns:Scleroderma (HCC),Encounter for long-term (current) use of high-risk medication Take 1 Tablet by mouth daily. 90 Tablet 12/19/19 25 Active diclofenac (VOLTAREN) 75 mg Oral Tablet, Delayed Release (E.C.)Indicatio ns:Scleroderma (HCC),Seronegat alex rheumatoid arthritis (HCC),Encounter for long-term (current) use of NSAIDs Take 1 Tablet by mouth 2 times daily. 60 Tablet 2 06/22/19 25 025 Discontin ued(Francisca lled by ) folic acid (FOLVITE) 1 mg Oral TabletIndicatio ns:Scleroderma (HCC),Encounter for long-term (current) use of high-risk medication Take 1 Tablet by mouth daily. 90 Tablet 10/19/19 25 025 Discontin ued(Reord er) Active Problems Problem Noted Date Diagnosed Date Seronegative rheumatoid arthritis 03/29/2024 Lung disease, interstitial 03/29/2024 Primary osteoarthritis of left hip 03/08/2024 Lymphadenopathy 11/28/2023 Chronic gout without tophus 10/11/2023 Overview (10/09/2024): - right podagra, uric acid 7.4 - started allopurinol 100 mg daily in 09/27 - uric acid 7.4-->6 - The diagnosis of gouty arthritis was discussed. I did discuss modifiable risk factors, mainly food and weight. The association was discussed of gout and food containing high uric acid, particularly meat, shellfish, and alcohol. The importance of dietary modification and weight reduction was discussed. Scleroderma 08/08/2023 Overview (01/08/2025): - RNA polymerase 3 positive systemic sclerosis , LUCY 1:640, nuclear, nucleolar , RNA santana 3 positive, inflammatory arthritis, itching, sclerodactyly, abnormal nailfold capillaroscopy - CT chest, abdomen, pelvis did not show any e/o malignancy, RHC ruled out PAH, normal PSA level, uptodate with colonoscopy - CT chest: Minimal increased lingular and bilateral dependent lower lobe , PET scan 11/04/23- There are interstitial opacities in the lung bases bilaterally, [...] lower lobe bronchiectasis. 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 Should contact us for further guidance on how/when to hold the therapy. 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 Assessment & Plan (10/30/2024 4:39 PM EDT): Well controlled cont Singulair/symbicort/Fasenra shots Primary osteoarthritis of right hip 12/07/2018 Essential hypertension 12/07/2018 Hyperlipidemia 12/07/2018 Severe persistent asthma without complication Discomfort of right hip 07/11/2018 Chronic rhinitis 05/10/2018 Moderate persistent asthma with exacerbation 08/2018 Gastroesophageal reflux disease without esophagi tis 05/10/2018 Encounters Date Type Department Care Team Description 01/08/2025 10:20 AM EST [facility] [address] [place] [address] Bree Gonsalez MD Scleroderma (HCC) (Primary Dx); Scleroderma with pulmonary involvement (HCC); Seronegative rheumatoid arthritis (HCC); Chronic gout without tophus, unspecified cause, unspecified site; Primary osteoarthritis of right hip; Gastroesophageal reflux disease without esophagitis; ILD (interstitial lung disease) ([facility]); Encounter for long-term (current) use of NSAIDs; Encounter for long-term (current) use of high-risk medication; Eosinophilic asthma; Flu vaccine need 01/02/2025 10:15 AM EDT Office Visit [facility] [address] [place] [address] Lung disease, interstitial (HCC) (Primary Dx); Seronegative rheumatoid arthritis (HCC); Encounter for long-term (current) use of high-risk medication; Scleroderma (HCC) 12/17/2024 Refill [facility] [address] [place] [address] Bree Gonsalez MD Medication Refill 12/16/2024 Refill [facility] [address] [place] [address] Bree Gonsalez MD Medication Refill 12/05/2024 10:15 AM EDT Office Visit [facility] [address] [place] [address] Lung disease, interstitial (HCC) (Primary Dx); Seronegative rheumatoid arthritis (HCC); Encounter for long-term (current) use of high-risk medication; Scleroderma ([facility]) 11/29/2024 Refill [facility] [address] [place] [address] Bree Gonsalez MD Medication Refill 11/19/2024 10:00 AM EDT Office [place] [facility] [place] [address] Jose Rangel MD ASHD (arteriosclerotic heart disease) (Primary Dx); Palpitations 11/16/2024 Travel 11/11/2024 Refill [facility] [place] [address] [facility] [address] [place] [address] Daphne Mendoza MD Medication Refill 11/08/2024 Results Follow-Up [facility] [address] [place] [address] Bree Gonsalez MD CBC WITH AUTO DIFF-QUEST, CREATININE-QUEST, HEPATIC FUNCTION PANEL-QUEST, URIC ACID-QUEST 11/07/2024 10:00 AM EDT Office Visit [facility] [address] [place] [address] Lung disease, interstitial (HCC) (Primary Dx); Seronegative rheumatoid arthritis (HCC); Encounter for long-term (current) use of high-risk medication; Scleroderma (HCC) 11/01/2024 Refill [facility] [address] [place] [address] Bree Gonsalez MD Medication Refill 11/01/2024 Refill [facility] [address] [place] [address] Bree Gonsalez MD Medication Refill 10/30/2024 1:30 PM EDT Office Visit [facility] [address] [place] [address] Daphne Mendoza MD Scleroderma (HCC) (Primary Dx); Immunosuppression due to drug therapy; ILD (interstitial lung disease) (HCC); Eosinophilic asthma 10/29/2024 8:56 AM EDT - 10/29/2024 11:59 PM EDT Hospital Encounter [facility] [address] [place] [address] Daphne Mendoza MD Scleroderma (HCC) Discharge Disposition: Home or Self Care 10/29/2024 8:55 AM EDT Hospital Encounter [facility] [address] [place] [address] Daphne Mendoza MD ILD (interstitial lung disease) (HCC); Scleroderma (HCC) Discharge Disposition: Home or Self Care 10/18/2024 Refill [facility] [address] [place] [address] Bree Gonsalez MD Medication Refill from Last 3 Months Immunizations Immunization Administration Dates Next Due Influenza Patient Reported 01/14/2025 Influenza Vaccine Quadrivalent 12/29/2015 Influenza Virus Vaccine Quadrivalant, Flublok Pneumococcal Conjugate Vaccine 20 Valent 025 Tdap 11/09/2017 Surgical History Surgery Date Site/Laterality Comments LITHOTRIPSY Bust up Kidney Stone [phone] HERNIA REPAIR Age 1 COLONOSCOPY 03/07/2017 - 03/06/2018 NOSE SURGERY fracture repair HIP ARTHROPLASTY 12/06/2018 Right RIGHT TOTAL HIP REPLACEMENT; Surgeon: Gregory Brantley MD; Location: ED MAIN OR; Service: Orthopedics Medical devices from this surgery are in the Medical Devices section. DENTAL SURGERY wisdom teeth extracted x 3, several dental extractions UPPER GASTROINTESTINAL ENDOSCOPY 12/05/2017 - 01/04/2018 ELBOW ARTHROTOMY 02/16/2019 Right RIGHT ELBOW INCISION AND DRAINAGE OLECRANON BURSITIS; Surgeon: Gregory Brantley MD; Location: [facility]; Service: Orthopedics CARDIAC CATHETERIZATION 2023 To ck pressure inside heart AXILLARY SURGERY 12/06/2023 Left Left axilla excisional lymph node biopsy; Surgeon: Efren Peace MD; Location: ED MAIN OR; Service: General ANKLE FRACTURE SURGERY 02/2007 Left ABDOMEN SURGERY 1961 Hernia JOINT REPLACEMENT 12-06-18 Left hip Medical History Medical History Date Comments Hypertension Was well control led High cholesterol Night sweats History of broken nose Broken ankle 2006 no surgery required Asthma follows with pul christian for eosinophilic asthma. Uses inhalers Arthritis Have been told I have Diverticulosis Kidney stone History of snoring Wears glasses Heartburn Post-operative nausea and vomiting with lithotripsy Scleroderma (HCC) GERD (gastroesophageal reflu x disease) 20 yrs ago Allergy Possibly sulfa [address] prescribed too much Kidney disease Family History Medical History Relation Name Comments COPD Father Mani Hand Heart Disease Father Mani Hand 1988 Heart Failure Father Mani Hand Had a rhumat ic heart 1988 High Blood Pressure Father Mani Hand 1 989 Hypertension Father Mani Hand in 1988 Vision Loss Maternal Grandmother Jean Marie Flood a pprox 1990 Cancer Mother Yossi Hand Lymphoma and w as cured High Blood Pressure Mother Yossi Hand Allergies Other Daughter Cancer Paternal Uncle Luis Hand heavy sm oker Anesth Problems Neg Hx Relation Name Status Comments Father Mani Hand Maternal Grandmother Jean Marie Flood Alive Mother Yossi Hand Alive Other Daughter Alive Paternal Uncle Luis Hand Alive Social History Tobacco Use Types Packs/Day [...] Industry Job Start Date Job End Date 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, 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[employer] Not on file Not on maikel e Not on file Last Filed Vital Signs Vital Sign Reading Time Taken Comments Blood Pressure 126/66 01/08/2025 9:54 AM EST Pulse 68 01/02/2025 10:48 AM EDT Temperature 36.8 C (98.2 F) 01/08/2025 9:54 AM EST Respiratory Rate 16 01/02/2025 10:4 8 AM EDT Oxygen Saturation 97% 01/02/2025 10: 48 AM EDT Inhaled Oxygen Concentration - - Weight 109.4 kg (241 lb 3.2 oz) 01/08/2025 9:54 AM EST Height 182.9 cm (6') 01/08/2025 9:54 AM EST Body Mass Index 32.71 01/08/2025 9:54 AM EST Plan of Treatment Upcoming Encounters Date Type Department Care Team (Late st Contact Info) Description 01/30/2025 10:30 AM EST Office Visit [facility] [address] [place] [address] 02/27/2025 10:30 AM EST Office Visit [facility] [address] [place] [address] 03/27/2025 10:15 AM EST Office Visit [facility] [address] [place] [address] 04/02/2025 10:15 AM EST Office Visit [facility] [address] [place] [address] Daphne Mendoza MD [address] [place] [address] 04/09/2025 10:00 AM EST Office Visit [facility] [address] [place] [address] Bree Gonsalez MD [address] [place] [address] 07/01/2025 9:15 AM EDT Office Visit [facility] [address] [place] [address] [place] [address] Jose Rangel MD [address] [place] [address] [place] [address] Health Maintenance Due Date Last Done Comments Wellness Exam Medicare 12/29/1962 Zoster (1 of 2) 12/29/1978 Cologuard 12/29/2004 Colon Cancer Screening 12/29/2004 Colonoscopy 12/29/2004 FIT 12/29/2004 Sigmoidoscopy 12/29/2004 Virtual Colonography 12/29/2004 RSV or 60+ (1 - Risk 50-74 years 1-dose series) 12/29/2009 COVID-19 Vaccine (3 - Moderna risk series) 06/24/2020 05/27/2020, 04/26/2020 DTaP/TDaP/Td (2 - Td or Tdap) 11/10/2027 11/09/2017 Hepatitis C Screening Completed 05/01/2024 , 06/22/2023, 11/07/2018 Influenza Vaccine Completed 01/14/2025, , 12/29/2015, Additional history exists Pneumococcal Vaccine 50+ Completed 01/14/2025 Hepatitis B Vaccine Aged Out No longe r eligible based on patient's age to complete this topic Meningococcal B Vaccine Aged Out No l onger eligible based on patient's age to complete this topic Medical Devices Implanted Type Area Wind Turbine Mechanic Device Identifier Shelf Expiration Date Model / Serial / Lot Insert Trident 3 X 0 Degree 36mm - [id number] Implanted:Qty: 1 on 12/06/2018 by Gregory Brantley MD at [facility] Right: Hip OG:ORTHOPEDI CS 10/03/2023 [id number] / / [id number] Trident Ii Tritanium Clusterhole 52e - [id number] Implanted:Qty: 1 on 12/06/2018 by Gregory Brantley MD at [facility] Right: Hip OG:ORTHOPEDI CS 08/21/2023 [id number] / / [id number] Size 6 Accolade Ii 127 Deg - [id number] Implanted:Qty: 1 on 12/06/2018 by Gregory Brantley MD at [facility] Right: Hip OG:ORTHOPEDI CS 10/29/2023 [id number] / / [id number] Head Fem +7.5mm Ofst Tpr 36mm Hip Blx D V40 Strl - [id number] Implanted:Qty: 1 on 12/06/2018 by Gregory Brantley MD at [facility] Right: Hip OG:ORTHOPEDI CS 05/08/2023 [id number] / / [id number] Procedures Procedure Name Priority Date/Time Associated Diagnosis Comments URIC ACID-QUEST Routine 11/07/2024 9:28 AM EDT Chronic gout without tophus, unspecified cause, unspecified site HEPATIC FUNCTION PANEL-QUEST Routine 11/07/2024 9:28 AM EDT Scleroderma (HCC) Encounter for long-term (current) use of high-risk medication CREATININE-QUEST Routine 11/07/2024 9:28 AM EDT Scleroderma (HCC) Encounter for long-term (current) use of high-risk medication CBC WITH AUTO DIFF-QUEST Routine 11/07/2024 9:28 AM EDT Scleroderma (HCC) Encounter for long-term (current) use of high-risk medication CT CHEST HIGH RESOLUTION WO CONTRAST Routine 10/29/2024 9:18 AM EDT ILD (interstitial lung disease) (HCC) Scleroderma (HCC) PULMONARY FUNCTION TEST Routine 10/29/2024 8:56 AM EDT Scleroderma (HCC) HEPATITIS C ANTIBODY-QUEST Routine 05/01/2024 3:04 PM EST from Last 3 Months or Most Recently Relevant to Health Maintenance Results * URIC ACID-QUEST (11/07/2024 9:28 AM EDT) Uric Acid 5.9 4.0 - 8.0 mg/dL [facility] Comment: Therapeutic target for gout patients: <6.0 mg/dL 11/07/2024 9:28 AM EDT 11/07/2024 9:28 AM EDT Bree Gonsalez MD [facility]-CHEMISTRY ORDERABLES Final Result Performing Organization Address [facility]/ZIP Co de Phone Number [facility] [address] [place] [address] * HEPATIC FUNCTION PANEL-QUEST (11/07/2024 9:28 AM EDT) Pathologist [facility] Protein, Total 7.0 6.1 - 8.1 g/dL [facility] Albumin 4.4 3.6 - 5.1 g/dL [facility] Globulin 2.6 1.9 - 3.7 g/dL (calc) [facility] Albumin/Globuli n Ratio 1.7 1.0 - 2.5 (calc) [facility] Total Bilirubin 0.7 0.2 - 1.2 mg/dL [facility] Bilirubin, Direct (Micro) 0.1 < OR = 0.2 mg/dL [facility] Bilirubin, Indirect (Micro) 0.6 0.2 - 1.2 mg/dL (calc) [facility] Alk Phos 60 35 - 144 U/L [facility] AST 24 10 - 35 U/L [facility] ALT 25 9 - 46 U/L [facility] 11/07/2024 9:28 AM EDT 11/07/2024 9:28 AM EDT Bree Gonsalez MD [facility]-CHEMISTRY ORDERABLES Final Result Performing Organization Address [facility]/ZIP Co de Phone Number [facility] [address] [place] [address] * CREATININE-QUEST (11/07/2024 9:28 AM EDT) Creatinine 1.06 0.70 - 1.35 mg/dL [facility] EGFR 78 > OR = 60 mL/min/1.73 m2 [facility] 11/07/2024 9:28 AM EDT 11/07/2024 9:28 AM EDT Bree Gonsalez MD [facility]-CHEMISTRY ORDERABLES Final Result [facility] [address] [place] [address] * (ABNORMAL) CBC WITH AUTO DIFF-QUEST (11/07/2024 9:28 AM EDT) Pathologist [facility] WBC 7.6 3.8 - 10.8 Thousand/u L [facility] RBC 5.05 4.20 - 5.80 Million/uL [facility] Hemoglobin 14.8 13.2 - 17.1 g/dL [facility] Hematocrit 45.5 38.5 - 50.0 % [facility] MCV 90.1 80.0 - 100.0 fL [facility] MCH 29.3 27.0 - 33.0 pg [facility] MCHC 32.5 32.0 - 36.0 g/dL [facility] Comment: For adults, a slight decrease in the calculated MCHC value (in the range of 30 to 32 g/dL) is most likely not clinically significant; however, it should be interpreted with caution in correlation with other red cell parameters and the patient's clinical condition. RDW 12.9 11.0 - 15.0 % [facility] Platelets 200 140 - 400 Thousand/u L [facility] MPV 9.6 7.5 - 12.5 fL [facility] Neut# 4,986 1,500 - 7,800 cells/uL [facility] Lymph# 1,687 850 - 3,900 cells/uL [facility] Monocytes(Absolu te) 920 200 - 950 cells/uL [facility] Eos 0(L) 15 - 500 cells/uL [facility] Baso# 8 0 - 200 cells/uL [facility] Neut Percent 65.6 % [facility] Lymph Percent 22.2 % [facility] Monocytes 12.1 % [facility] Eos Percent 0.0 % [facility] Baso Percent 0.1 % [facility] 11/07/2024 9:28 AM EDT 11/07/2024 9:28 AM EDT us Bree Gonsalez MD [facility]-HEMATOLOGY ORDERABLES Leena l Result [facility] [address] [place] [address] * CT CHEST HIGH RESOLUTION WO CONTRAST (10/29/2024 9:18 AM EDT) Anatomical Region Laterality Modality Chest Computed Tomogra phy 10/29/2024 9:18 AM EDT Impressions 10/29/2024 10:18 AM EDT 1. Stable mild to moderate bilateral lower lobe subpleural nonspecific interstitial fibrosis and bilateral lower lobe bronchiectasis. Narrative 10/29/2024 10:[address] CHEST HIGH RESOLUTION WO CONTRAST 10/29/2024 9:18 AM HISTORY: J84.9-Interstitial pulmonary disease, unspecified (HCC)-ICD-10-CM M34.9-Systemic sclerosis, unspecified (HCC)-ICD-10-CM PROCEDURE: CT chest high resolution chest CT protocol. Noncontrast. FINDINGS: No mediastinal hilar or axillary lymph node enlargement. No pericardial or pleural effusion. Visualized portions of the upper abdominal organs are unremarkable. Stable mild to moderate bilateral lower lobe subpleural interstitial septal thickening and moderate bilateral lower lobe bronchiectasis. Procedure Note Samuel Palafox MD - 10/29/2024 CT CHEST HIGH RESOLUTION WO CONTRAST 10/29/2024 9:18 AM HISTORY: J84.9-Interstitial pulmonary disease, unspecified(HCC)-ICD-10-CM M34.9-Systemic sclerosis, unspecified (HCC)-ICD-10-CM PROCEDURE: CT chest high resolution chest CT protocol. Noncontrast. FINDINGS: No mediastinal hilar or axillary lymph node enlargement. No pericardialor pleural effusion. Visualized portions of the upper abdominal organs are unremarkable. Stable mild to moderate bilateral lower lobe subpleural interstitialseptal thickening and moderate bilateral lower lobe bronchiectasis. IMPRESSION: 1. Stable mild to moderate bilateral lower lobe subpleural nonspecific interstitial fibrosis and bilateral lower lobe bronchiectasis. Daphne Mendoza [place] [facility] [place] ORDER[place]LES Final Res ult * (ABNORMAL) PULMONARY FUNCTION TEST (10/29/2024 8:56 AM EDT) [facility] FVC_PRE 3.94 3.40 - 5.70 L 11/01/2024 2:12 PM EDT [facility] FEV1_PRE 3.28 2.55 - 4.32 L 11/01/2024 2:12 PM EDT [facility] FEV1/FVC_PRE 83.43 64.32 - 86.94 % 11/01/2024 2:12 PM EDT [facility] Hb_PRE 12.40 g(Hb)/dL 11/01/2024 2:12 PM EDT [facility] ERV_PRE 0.86 0.49 - 2.76 L 11/01/2024 2:12 PM EDT [facility] RV_PRE 1.77 1.54 - 3.71 L 11/01/2024 2:12 PM EDT [facility] RV%TLC_PRE 31.07 22.25 - 43.11 % 11/01/2024 2:12 PM EDT [facility] TLC_PRE 5.71(L) 6.12 - 9.24 L 11/01/2024 2:12 PM EDT [facility] FVC_Pre%REF 87 % 11/01/2024 2:12 PM EDT [facility] FEV1_Pre%REF 95 % 11/01/2024 2:12 PM EDT [facility] RV_Pre%REF 70 % 11/01/2024 2:12 PM EDT [facility] TLC_Pre%REF 74 % 11/01/2024 2:12 PM EDT [facility] ERV_Pre%REF 61 % 11/01/2024 2:12 PM EDT [facility] 10/29/2024 8:56 AM EDT Impressions [facility] - 11/01/2024 2:11 PM EDT Normal lung function Daphne Mendoza MD PFT ORDERABLES Final Resul t Performing Organization Address City/[facility] Co de Phone Number [facility] [address] [place] [address] * HEPATITIS C ANTIBODY-QUEST (05/01/2024 3:04 PM EST) Hep C Ab Interp NON-REACTI VE NON-REACT ALEX [facility] Comment: HCV antibody was non-reactive. There is no laboratory evidence of HCV infection. In most cases, no further action is required. However, if recent HCV exposure is suspected, a test for HCV RNA (test code 16988) is suggested. For additional information please refer to http://education.Freebee/faq/[email or web address] (This link is being provided for informational/ educational purposes only.) 05/01/2024 3:04 PM EST 05/01/2024 3:04 PM EST Bree Gonsalez MD [facility] Leena l Result Performing Organization Address City/[facility] Co de Phone Number [facility] [address] [place] [address] from Last 3 Months or Most Recently Relevant to Health Maintenance [place] PART A AND B [address] Advance Directives For more information, please contact: [phone] * Full Code (Latest Code Status on File) Date Activated Date Inactivated Comments 12/06/2018 6:04 PM 12/07/2018 8:59 PM Care Teams Aircraft Pneudraulic Systems Mechanic Relationship Specialty Start Date End Date Katlyn Eid [address] [facility] [address] [place] [address] PCP - General Family Medicine 10/22/15 Bree Gonsalez MD [address] [facility] [place] [address] Internal Medicine-Rheumatology 06/20/23 Amada Yo, Clerical Staff Financial Counselor 03/14/24
--- OUTSIDE RECORDS SUMMARY | 2025-01-15 15:04 | XMS_ITS | Encounter Summary ---
Author Organization [place] [address] Care Team Providers Care Topper Packer Name Role Phone Katlyn Eid Primary Care Provider [phone] Bree Gonsalez MD Unavailable Amada Yo Clerical Staff Unavailable Encounter Details Date Type Department Care Team (Late st Contact Info) Description 11/10/2023 Orders Only [facility] [place] [address] Luba Andrew MD [address] [place] [address] Social History Tobacco Use Types Packs/Day Years Used Date Smoking Tobacco: Never Passive Smoke Exposure: Never Smokeless Tobacco: Never Alcohol Use Standard Drinks/Week Comments No 0 (1 standard drink = 0.6 oz pur e alcohol) Sexually Active Control Partners Comments Never Sex and Gender Information Value Date Recorded Sex Assigned at Not on file Legal Sex Male 2:37 AM EDT Gender Identity Not on file Sexual Orientation Not on file 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 Industry 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 Start Date Job End 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, 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[employer] Not on file Not on maikel e Not on file documented as of this encounter Plan of Treatment Upcoming Encounters Date Type Department Care Team (Late st Contact Info) Description 01/30/2025 10:30 AM EST Office Visit [facility] [address] [place] [address] 02/27/2025 10:30 AM EST Office Visit [facility] [address] [place] [address] 03/27/2025 10:15 AM EST Office Visit [facility] [address] [place] [address] 04/02/2025 10:15 AM EST Office Visit [facility] [address] [place] [id number] Daphne Mendoza MD [address] [place] [address] 04/09/2025 10:00 AM EST Office Visit [facility] [address] [place] [address] Bree Gonsalez MD [address] [place] [address] 07/01/2025 9:15 AM EDT Office [place] [address] Jose Rangel MD [address] [place] [address] documented as of this encounter Procedures Procedure Name Priority Date/Time Associated Diagnosis Comments NEOGENOMICS STANDARD LEUKEMIA/LYMPHOMA PANEL Routine 11/10/2023 11:43 AM EDT documented in this encounter Results * NEOGENOMICS STANDARD LEUKEMIA/LYMPHOMA PANEL (11/10/2023 11:43 AM EDT) 11/10/2023 11:4 3 AM EDT Narrative [facility] - 11/14/2023 9:02 AM EDT Requesting Provider: SCOT Curtis Specimen = [id number] us Luba Andrew MD PATHOLOGY ORDERABLES Final Resul t [facility] [address] [place] [address] documented in this encounter Visit Diagnoses Not on filedocumented in this encounter Care Teams Topper Packer Relationship Specialty Start Date End Date Katlyn Eid [address] [place] [address] PCP - General Family Medicine 10/22/15 Bree Gonsalez MD [address] [place] [address] Internal Medicine-Rheumatology 06/20/23 Amada Yo, Clerical Staff Financial Counselor 03/14/24 documented as of this encounter
[2025-01-15 15:16] LABS: Hematocrit 48.3 % (42.0-52.0); Hemoglobin 16.5 g/dL (14.1-18.0); Immature Granulocytes % 0.2 %; Mean Corpuscular HGB Conc 34.2 g/dL (31.8-35.4); Mean Corpuscular Hemoglobin 30.3 pg (27.0-31.2); Mean Corpuscular Volume 88.6 fl (80-94); Nucleated Red Blood Cells % 0 %; Platelet Count 226 K/mm3 (142-424); Red Blood Count 5.45 M/mm3 (4.60-6.20); Red Cell Distribution Width-SD 43.0 fL; White Blood Count 5.9 K/mm3 (4.8-10.8)
[2025-01-15 16:02] LABS: Alanine Aminotransferase 31 U/L (12-78); Albumin Level 4.7 g/dl (3.5-5.0); Albumin/Globulin Ratio 1.5 (1.1-1.8); Alkaline Phosphatase 54 U/L (38-126); Anion Gap 10.9 mEq/L (5-15); Aspartate Amino Transferase 36 U/L (17-59); Bilirubin,Total 1.2 mg/dl (0.2-1.3); Blood Urea Nitrogen 12 mg/dl (9-20); Calcium 9.9 mg/dl (8.4-10.2); Carbon Dioxide 30 mmol/L (22.0-30.0); Chloride 97 mmol/L (98-107); Cholesterol 240 mg/dl (140-200); Creatinine,Serum 1.10 mg/dl (0.66-1.25); Estimated Glomerular Filt Rate 67 ml/min (>60); GFR (African American) 81 ML/MIN (>60); Globulin 3.2 g/dL (1.3-3.2); Glucose 102 mg/dl (74-100); HDL Cholesterol 46 mg/dl (40-60); Potassium 3.9 mmoL/L (3.5-5.1); Sodium 134 mmol/L (136-145); Total Protein,Serum 7.9 g/dl (6.3-8.2); Triglycerides 132 mg/dl (30-150)
[2025-01-15 16:17] LABS: 25-OH Vitamin D, Total 71.1 ng/mL (30-100)
[2025-01-15 16:18] LABS: Hemoglobin A1C 4.9 % (4.0-6.0)
[2025-01-15 16:34] LABS: Prostate Specific Ag, Diagnost 4.48 ng/ml (0.0-4.0); Thyroid Stimulating Hormone 1.07 uIU/mL (0.465-4.68)
[2025-01-15 16:53] LABS: Vitamin B12 901 pg/mL (239-931)
== END 2025-01-15 23:59 | disposition home or self-care (01) ==
LOC: LAB 15:02
PROVIDERS: PCP Nurse Practitioner; Visit Provider Nurse Practitioner
DX: E78.5 Hyperlipidemia, unspecified (principal); I10 Essential (primary) hypertension; J45.909 Unspecified asthma, uncomplicated; K21.9 Gastro-esophageal reflux disease without esophagitis; E53.8 Deficiency of other specified B group vitamins; R97.20 Elevated prostate specific antigen [PSA]; M34.9 Systemic sclerosis, unspecified; E66.9 Obesity, unspecified; E55.9 Vitamin D deficiency, unspecified; Z86.39 Personal history of other endocrine, nutritional and metabolic disease
CPT/HCPCS: 80053; 80061; 82043; 82306; 82570; 82607; 83036; 84153; 84443; 85025